=== PATIENT | female | born 1970 | race Caucasian/White ===

== ENCOUNTER → 2016-03-21 | Day surgery (SDC) | payer OTHER ==
[~2016-03-21] MED LIST: ASPI81TA2 PO; FENTANYL PF 100 MCG/2 ML VIAL. IV PRN; HYDROMORPHONE 2 MG/ML VIAL. IV PRN; IV RINGERS,LACTATED 1000ML 1,000 ML IV SCH; LIDOCAINE 1% 1 ML SYRINGE. ID PRN; LIDOCAINE 2% PF Vial for OR 5 ML VIAL. ONE; LORA10TA3 PO; MORPHINE SULFATE 2 MG/ML DISP.SYRIN. IV PRN; ONDANSETRON PF 4 MG/2 ML VIAL. IV PRN; PROCHLORPERAZINE 10 MG/2 ML VIAL. IV PRN; PROPOFOL 20 ML IV ONE
[2016-03-21 09:19] LABS: NEG OBC UR NEG; POS OBC UR POS
[2016-03-21 10:13] VITALS: BP 118/78
== END | disposition home or self-care (01) ==
LOC: SURG 08:47
PROVIDERS: ATTEND Internal Medicine Gastroenterology
DX: K64.0 First degree hemorrhoids (principal); J45.909 Unspecified asthma, uncomplicated; Z80.41 Family history of malignant neoplasm of ovary; Z72.89 Other problems related to lifestyle
CPT/HCPCS: 45378; 81025; J2704

== ENCOUNTER 2016-07-10 08:32 | Emergency (ER) | payer OTHER ==
[~2016-07-10] VITALS: Ht 170.2 cm; Wt 79.4 kg
[~2016-07-10 08:32] MED LIST changes: -FENTANYL PF 100 MCG/2 ML VIAL. IV PRN; -HYDROMORPHONE 2 MG/ML VIAL. IV PRN; -IV RINGERS,LACTATED 1000ML 1,000 ML IV SCH; -LIDOCAINE 1% 1 ML SYRINGE. ID PRN; -LIDOCAINE 2% PF Vial for OR 5 ML VIAL. ONE; -MORPHINE SULFATE 2 MG/ML DISP.SYRIN. IV PRN; -ONDANSETRON PF 4 MG/2 ML VIAL. IV PRN; -PROCHLORPERAZINE 10 MG/2 ML VIAL. IV PRN; -PROPOFOL 20 ML IV ONE
--- NOTE | 2016-07-10 08:59 | EKG ---
[facility] [address] [place] [address] Test Date: 2016-07-10 Test Time: 08:40:36 Pat Name: JESSICA FERNANDEZ Department: Room: Gender: F Chaperone: : 1970 Requested By: SADIE MCLAUGHLIN Order Number: [id number] Reading MD: Addison Alexander Measurements Intervals [place] Rate: 64 P: 30 ID: 160 QRS: 42 QRSD: 80 T: 22 QT: 382 QTc: 394 Interpretive Statements SINUS RHYTHM Electronically Signed On 07-13-2016 12:57:09 CDT by Addison Alexander
[2016-07-10] MEDS ORDERED: IV NORMAL SALINE 500ML BAG 500 ML IV ONE (09:00)
[2016-07-10] MEDS ORDERED: ONDANSETRON PF 4 MG/2 ML VIAL. IV ONE (09:00)
[2016-07-10] MEDS ORDERED: FAMOTIDINE 20 MG/2 ML VIAL IVP ONE (09:00)
--- NOTE | 2016-07-10 09:14 | PHYS DOC ---
Past Medical History Past Medical History: Asthma, Other Additional Past Medical Histor: Chronic sinus infections Past Surgical History: Tonsillectomy Additional Past Surgical Histo: laproscopy exploratory for endometriosis Alcohol Use: Rarely Drug Use: None Adult General Chief Complaint Chief Complaint: CHEST PAIN HPI HPI This is a 45-year-old female states she's had some mild intermittent chest discomfort today as well as some persistent nausea vomiting. She states this is all been noted today upon awakening. Patient was able to eat a full meal but states her symptoms did worsen after a meal. She does describe some left shoulder pain with her symptoms that has been there somewhat chronically. She denies any acute injury. She is a nonsmoker. She states her dad does have history of cardiac disease in his 60s. She states her mom has had history of TIAs in her early 40s. She herself denies any specific past medical history. She denies any drugs or alcohol use. Upon my initial assessment, patient does not appear to be in any distress. She is nontoxic and afebrile in appearance. She denies any chest pain or shortness breath at this time. Review of Systems Review of Systems Constitutional: Denies fever or chills [] Eyes: Denies change in visual acuity, redness, or eye pain [] HENT: Denies nasal congestion or sore throat [] Respiratory: Denies cough or shortness of breath [] Cardiovascular: No additional information not addressed in HPI [] GI: Denies abdominal pain, nausea, vomiting, bloody stools or diarrhea [] : Denies dysuria or hematuria [] Musculoskeletal: Denies back pain or joint pain [] Integument: Denies rash or skin lesions [] Neurologic: Denies headache, focal weakness or sensory changes [] Endocrine: Denies polyuria or polydipsia [] Current Medications Current Medications Current Medications Medications (Trade) Dose Ordered Sig/Arlene Start Time Stop Time Status Last Admin Dose Admin Famotidine (Pepcid) 20 mg 1X ONCE 07/10/16 09:00 07/10/16 09:01 DC 07/10/16 09:24 20 MG Ondansetron HCl (Zofran) 4 mg 1X ONCE 07/10/16 09:00 07/10/16 09:01 DC 07/10/16 09:24 4 MG Sodium Chloride 500 ml @ 500 mls/hr 1X ONCE 07/10/16 09:00 07/10/16 09:59 DC 07/10/16 09:25 500 MLS/HR Allergies Allergies Allergies Coded Allergies Type Severity Reaction Last Updated Verified No Known Drug Allergies 07/10/16 No Physical Exam Physical Exam Constitutional: Well developed, well nourished, no acute distress, non-toxic appearance. [] HENT: Normocephalic, atraumatic, bilateral external ears normal, oropharynx moist, no oral exudates, nose normal. [] Eyes: PERRLA, EOMI, conjunctiva normal, no discharge. [] Neck: Normal range of motion, no tenderness, supple, no stridor. [] Cardiovascular:Heart rate regular rhythm, no murmur [] Lungs & Thorax: Bilateral breath sounds clear to auscultation [] Abdomen: Bowel sounds normal, soft, no tenderness, no masses, no pulsatile masses. [] Skin: Warm, dry, no erythema, no rash. [] Back: No tenderness, no CVA tenderness. [] Extremities: No tenderness, no cyanosis, no clubbing, ROM intact, no edema. [] Neurologic: Alert and oriented X 3, normal motor function, normal sensory function, no focal deficits noted. [] Psychologic: Affect normal, judgement normal, mood normal. [] Current Patient Data Vital Signs Vital Signs Date Time Temp Pulse Resp B/P (MAP) Pulse Ox O2 Delivery O2 Flow Rate FiO2 07/10/16 10:38 52 16 113/70 (84) 100 Room Air 07/10/16 08:42 97.9 97.9 Lab Values Laboratory Tests Test 07/10/16 09:25 White Blood Count 6.9 x10^3/uL (4.0-11.0) Red Blood Count 4.47 x10^6/uL (3.50-5.40) Hemoglobin 13.4 g/dL (12.0-15.5) Hematocrit 38.7 % (36.0-47.0) Mean Corpuscular Volume 87 fL (79-100) Mean Corpuscular Hemoglobin 30 pg (25-35) Mean Corpuscular Hemoglobin Concent 35 g/dL (31-37) Red Cell Distribution Width 13.1 % (11.5-14.5) Platelet Count 250 x10^3/uL (140-400) Neutrophils (%) (Auto) 76 % (31-73) H Lymphocytes (%) (Auto) 16 % (24-48) L Monocytes (%) (Auto) 7 % (0-9) Eosinophils (%) (Auto) 1 % (0-3) Basophils (%) (Auto) 0 % (0-3) Neutrophils # (Auto) 5.2 x10^3uL (1.8-7.7) Lymphocytes # (Auto) 1.1 x10^3/uL (1.0-4.8) Monocytes # (Auto) 0.5 x10^3/uL (0.0-1.1) Eosinophils # (Auto) 0.1 x10^3/uL (0.0-0.7) Basophils # (Auto) 0.0 x10^3/uL (0.0-0.2) Sodium Level 142 mmol/L (136-145) Potassium Level 3.9 mmol/L (3.5-5.1) Chloride Level 105 mmol/L (98-107) Carbon Dioxide Level 26 mmol/L (21-32) Anion Gap 11 (6-14) Blood Urea Nitrogen 14 mg/dL (7-20) Creatinine 0.7 mg/dL (0.6-1.0) Estimated GFR (Cockcroft-Gault) 91.3 Glucose Level 104 mg/dL (70-99) H Calcium Level 9.6 mg/dL (8.5-10.1) Troponin I Quantitative < 0.017 ng/mL (0.000-0.055) Laboratory Tests 07/10/16 09:25 Laboratory Tests 07/10/16 09:25 EKG EKG EKG as interpreted by me shows a sinus rhythm with a rate of 64 bpm. There is no acute injury pattern seen. Intervals are normal. There are no signs of ectopy. Radiology/Procedures Radiology/Procedures Portable one view of the chest as interpreted by me did not reveal any acute cardiopulmonary process. Course & Med Decision Making Course & Med Decision Making Pertinent Labs and Imaging studies reviewed. (See chart for details) 44-year-old female who's having some mild nausea with no vomiting as well as some mild left shoulder and arm discomfort will have full laboratory workup including a set of cardiac enzymes. Her chest film and EKG at this time are unremarkable. I deemed her to be fairly low risk for cardiac related chest pain. A dose of Pepcid and Zofran will be given as her symptoms do seem to worsen after meals and could be related to indigestion. There are very atypical for cardiac disease. If her cardiac enzymes are negative, she will be safe to be discharged with close follow up. Her LIZ score is zero. On my reassessment, the patient is still somewhat symptomatic after Pepcid and Zofran. I ambulated with the patient without difficulty. I discussed that she is low risk for cardiac related chest pain and that she is to follow closely with her primary care doctor. She states she will follow up with Dr. Anguiano in the next several days which I think is appropriate for possible stress test. I also wrote her for a work note today. I also instructed her that if her pain symptoms should worsen in any way over the next 24 hours to return immediately to the ER. She is very agreeable with this plan and will be discharged without incident. Dragon Disclaimer Dragon Disclaimer This electronic medical record was generated, in whole or in part, using a voice recognition dictation system. Departure Departure Impression: Primary Impression: Chest pain Disposition: 01 HOME, SELF-CARE Admitting Physician: Other Condition: STABLE Referrals: MARLIN ANGUIANO MD Patient Instructions: Chest Pain (Nonspecific), [id number] Additional Instructions: Please follow up closely with Dr. Anguiano for your chest symptoms in the next 2-3 days. Return to the ER if your symptoms should worsen anyway in the next 24 hours such as worsening chest pain or shortness of breath. Scripts Ondansetron Hcl (ZOFRAN) 4 Mg Tablet 4 MG PO BID Y for NAUSEA/VOMITING, #10 TAB Prov: SADIE MCLAUGHLIN DO 07/10/16 SADIE MCLAUGHLIN DO Jul 10, 2016 09:14
--- NOTE | 2016-07-10 09:21 | RAD ---
Indication chest tightness.. Vomiting. A single view of the chest was obtained. No prior imaging is available. The heart, pulmonary vessels and mediastinum appear normal. The lungs are clear. There is no pleural fluid or pneumothorax. The visualized bony structures appear grossly intact. IMPRESSION: No acute or focal process is seen in the chest
[2016-07-10 09:36] LABS: BASO % 0 % (0-3); EOS % 1 % (0-3); HEMATOCRIT 38.7 % (36.0-47.0); HEMOGLOBIN 13.4 g/dL (12.0-15.5); LYMPH # 1.1 x10^3/uL (1.0-4.8); LYMPH % 16 % (24-48); MEAN CORPUSCULAR HEMOGLOBIN 30 pg (25-35); MEAN CORPUSCULAR HGB CONC 35 g/dL (31-37); MEAN CORPUSCULAR VOLUME 87 fL (79-100); MONO % 7 % (0-9); NEUT % 76 % (31-73); PLATELET COUNT 250 x10^3/uL (140-400); RED BLOOD COUNT 4.47 x10^6/uL (3.50-5.40); RED CELL DISTRIBUTION WIDTH 13.1 % (11.5-14.5); WHITE BLOOD COUNT 6.9 x10^3/uL (4.0-11.0)
[2016-07-10 09:50] LABS: CALCIUM 9.6 mg/dL (8.5-10.1); CREATININE 0.7 mg/dL (0.6-1.0); GFR 91.3; POTASSIUM 3.9 mmol/L (3.5-5.1)
[2016-07-10 10:38] VITALS: BP 113/70
[2016-07-10] MEDS ORDERED: ONDA4TAB7 PO (11:09)
== END 2016-07-10 11:27 | disposition home or self-care (01) ==
LOC: ER 08:32
DX: R07.89 Other chest pain (principal); R11.2 Nausea with vomiting, unspecified; M25.512 Pain in left shoulder; J45.909 Unspecified asthma, uncomplicated
CPT/HCPCS: 36415; 71010; 80048; 84484; 85027; 93005; 96361; 96374; 96375; 99285; J2405; J7040; S0028

== ENCOUNTER → 2017-01-20 | Outpatient (CLI) | payer OTHER ==
[~2017-01-20] MED LIST changes: +ASPI-630 PO; -ASPI81TA2 PO; +ONDA4TAB7 PO
--- NOTE | 2017-01-20 17:26 | KCIC ---
Bilateral digital screening mammograms: Reason for examination: Routine baseline screening. Interpretation was made with the benefit of CAD. The skin and nipples show no abnormalities. No abnormal axillary lymph nodes are seen. The breast parenchyma is heterogeneously dense. (Breast density: Category C.) There are no dominant masses, suspicious calcifications or architectural distortion. Impression: No evidence of malignancy. Recommend routine screening. Your patient's mammogram demonstrates that she has dense breast tissue (breast density category C or D), which could hide abnormalities, and if she has other risk factors for breast cancer that have been identified, she might benefit from supplemental screening tests that may be suggested by you as her ordering physician. Dense breast tissue, in and of itself, is a relatively common condition. Therefore, this information is not provided to cause undue concern, but rather to raise your awareness and to promote discussion with your patient regarding the presence of other risk factors, in addition to dense breast tissue. Your patient's mammography results will be sent to her. BI-RAD Category 1: Negative. "Our facility is accredited by the [employer] Mammography Program." This patient's information has been entered into a reminder system for the patient to be notified with the results of her examination and a target date for the next mammogram. Electronically signed by: Cathryn Ocampo MD (01/20/2017 5:22 PM) [facility]
== END | disposition home or self-care (01) ==
LOC: KCIC MAMMO 10:27
PROVIDERS: ATTEND Physician Assistant Medical
DX: Z12.31 Encounter for screening mammogram for malignant neoplasm of breast (principal)
CPT/HCPCS: G0202; 77067

== ENCOUNTER → 2017-05-28 | Outpatient (CLI) | payer OTHER | END | disposition home or self-care (01) | LOC: KCIC CT 12:51 | DX: Z13.6 Encounter for screening for cardiovascular disorders (principal); R91.1 Solitary pulmonary nodule; Z82.49 Family history of ischemic heart disease and other diseases of the circulatory system | CPT/HCPCS: 75571 ==

== ENCOUNTER → 2017-06-29 | Outpatient (CLI) | payer OTHER | END | disposition home or self-care (01) | LOC: ECHO 10:02 | DX: I36.1 Nonrheumatic tricuspid (valve) insufficiency (principal) | CPT/HCPCS: 93306 ==

== ENCOUNTER → 2018-03-25 | Outpatient (CLI) | payer OTHER ==
--- NOTE | 2018-03-25 09:36 | KCIC ---
EXAM: Cervical spine MRI without contrast. HISTORY: Right upper extremity radiculopathy. TECHNIQUE: Multiplanar, multisequence magnetic resonance imaging of the cervical spine was performed without contrast. COMPARISON: Radiographs dated 03/18/2018. FINDINGS: There is a chronic mild anterior superior endplate depression with Schmorl's node at T2. There is degenerative endplate remodeling with Schmorl's node formation at C6-C7. There is no suspicious osseous lesion. There is no acute or subacute fracture. No spinal cord lesion is seen. The posterior fossa and skull base are unremarkable. At C2-C3, there is no stenosis. At C3-C4, there is mild left greater than right facet arthropathy. There is no stenosis. At C4-C5, there is a shallow right posterior lateral disc protrusion. There is mild left facet arthropathy. There is mild right foraminal stenosis. At C5-C6, there is a left posterior lateral disc osteophyte complex imposed on endplate remodeling. There is mild bilateral facet arthropathy. There is a tiny dilated nerve root sheath cyst within the right neural foramen. There is mild left foraminal stenosis. At C6-C7, there is a disc bulge and endplate osteophytosis. There is minimal left greater than right facet arthropathy. There is uncovertebral arthropathy. There is a tiny dilated nerve root sheath cyst within the left neural foramen. There is minimal left foraminal stenosis. There is a suspected 7 mm cyst within the right C7 lamina. IMPRESSION: 1. Multilevel degenerative changes involving the cervical spine, described in detail above. This results in slight foraminal stenosis at the aforementioned levels. 2. No acute finding. Electronically signed by: Belgica Guzman MD (03/25/2018 9:33 AM) [facility]
== END | disposition home or self-care (01) ==
LOC: KCIC MRI 08:31
DX: M47.22 Other spondylosis with radiculopathy, cervical region (principal); M50.121 Cervical disc disorder at C4-C5 level with radiculopathy; M25.78 Osteophyte, vertebrae; M48.02 Spinal stenosis, cervical region
CPT/HCPCS: 72141

== ENCOUNTER → 2018-11-05 | Outpatient (CLI) | payer OTHER ==
[2018-11-05 12:40] LABS: BASO % 1 % (0-3); EOS # 0.1 x10^3/uL (0.0-0.7); EOS % 2 % (0-3); HEMATOCRIT 40.1 % (36.0-47.0); HEMOGLOBIN 13.6 g/dL (12.0-15.5); LYMPH # 1.6 x10^3/uL (1.0-4.8); LYMPH % 33 % (24-48); MEAN CORPUSCULAR HEMOGLOBIN 30 pg (25-35); MEAN CORPUSCULAR HGB CONC 34 g/dL (31-37); MEAN CORPUSCULAR VOLUME 88 fL (79-100); MONO # 0.4 x10^3/uL (0.0-1.1); MONO % 9 % (0-9); NEUT # 2.7 x10^3/uL (1.8-7.7); NEUT % 55 % (31-73); PLATELET COUNT 256 x10^3/uL (140-400); RED BLOOD COUNT 4.57 x10^6/uL (3.50-5.40); RED CELL DISTRIBUTION WIDTH 13.1 % (11.5-14.5); WHITE BLOOD COUNT 4.9 x10^3/uL (4.0-11.0)
[2018-11-05 21:08] LABS: RHEUMATOID FACTOR <10.0 IU/mL (0.0-13.9)
[2018-11-09 11:14] LABS: ANA INTERP Negative (.)
== END | disposition home or self-care (01) ==
LOC: LAB 12:24
PROVIDERS: ATTEND Physical Medicine & Rehabilitation
DX: M79.18 Myalgia, other site (principal)
CPT/HCPCS: 36415; 85025; 85651; 86038; 86431

== ENCOUNTER 2018-11-15 11:11 | Emergency (ER) | payer OTHER ==
[~2018-11-15] VITALS: Ht 170.2 cm; Wt 82.6 kg
--- NOTE | 2018-11-15 12:01 | RAD ---
EXAM: CT HEAD WITHOUT CONTRAST. HISTORY: Headache. TECHNIQUE: Computed tomography of the head was performed without intravenous contrast. COMPARISON: None. FINDINGS: There is no intracranial hemorrhage. Vila-white differentiation is preserved. The ventricles are normal in size and position. The visualized paranasal sinuses appear clear. The orbits are unremarkable. The temporal bones are unremarkable. The calvarium reveals no suspicious lesions. IMPRESSION: 1. No acute intracranial findings. *One or more of the following individualized dose reduction techniques were utilized for this examination: 1. Automated exposure control. 2. Adjustment of the mA and/or kV according to patient size. 3. Use of iterative reconstruction technique. Electronically signed by: Neelima Lal MD (11/15/2018 11:59 AM) [facility]
--- NOTE | 2018-11-15 12:16 | RAD ---
Chest radiograph 11/15/2018 11:34 AM INDICATION: Chest pain, headache COMPARISON: 07/10/2016 TECHNIQUE: Frontal and lateral views of the chest are provided. FINDINGS: The cardiomediastinal silhouette is within normal limits. There are no pleural effusions. There is no pulmonary vascular congestion. There is no pneumothorax. The lungs are clear. No significant osseous abnormality is identified. IMPRESSION: No acute cardiopulmonary process. Electronically signed by: Carey Genao MD (11/15/2018 12:13 PM) [facility]
[2018-11-15 12:33] LABS: BASO % 1 % (0-3); EOS # 0.2 x10^3/uL (0.0-0.7); EOS % 4 % (0-3); HEMATOCRIT 37.2 % (36.0-47.0); HEMOGLOBIN 12.7 g/dL (12.0-15.5); LYMPH # 1.5 x10^3/uL (1.0-4.8); LYMPH % 34 % (24-48); MEAN CORPUSCULAR HEMOGLOBIN 30 pg (25-35); MEAN CORPUSCULAR HGB CONC 34 g/dL (31-37); MEAN CORPUSCULAR VOLUME 88 fL (79-100); MONO # 0.3 x10^3/uL (0.0-1.1); MONO % 8 % (0-9); NEUT # 2.4 x10^3/uL (1.8-7.7); NEUT % 54 % (31-73); PLATELET COUNT 272 x10^3/uL (140-400); RED BLOOD COUNT 4.21 x10^6/uL (3.50-5.40); RED CELL DISTRIBUTION WIDTH 13.1 % (11.5-14.5); WHITE BLOOD COUNT 4.4 x10^3/uL (4.0-11.0)
[2018-11-15 12:39] LABS: CALCIUM 9.9 mg/dL (8.5-10.1); CREATININE 0.7 mg/dL (0.6-1.0); GFR 90.5
[2018-11-15 12:45] LABS: ALBUMIN 3.9 g/dL (3.4-5.0); ALBUMIN/GLOBULIN RATIO 1.1 (1.0-1.7); MAGNESIUM 1.8 mg/dL (1.8-2.4); TOTAL BILIRUBIN 0.5 mg/dL (0.2-1.0); TOTAL PROTEIN 7.3 g/dL (6.4-8.2)
--- NOTE | 2018-11-15 13:15 | PHYS DOC ---
Past Medical History Past Medical History: Asthma, Other Additional Past Medical Histor: Chronic sinus infections Past Surgical History: Tonsillectomy Additional Past Surgical Histo: laproscopy exploratory for endometriosis Alcohol Use: Rarely Drug Use: None Adult General Chief Complaint Chief Complaint: HYPERTENSION HPI HPI Patient is a 47 year old female who presents with complaining of hypertension. 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 She complaining of a few episodes of intermittent substernal pressure chest pain yesterday that last for a few minutes and resolved spontaneously. Patient complaining of not feeling good without neuro deficit, fever and chills, vomiting, urinary symptom, . Review of Systems Review of Systems Constitutional: Denies fever or chills [] Eyes: Denies change in visual acuity, redness, or eye pain [] HENT: Denies nasal congestion or sore throat [] Respiratory: Denies cough or shortness of breath [] Cardiovascular: No additional information not addressed in HPI [] GI: Denies abdominal pain, nausea, vomiting, bloody stools or diarrhea [] : Denies dysuria or hematuria [] Musculoskeletal: Denies back pain or joint pain [] Integument: Denies rash or skin lesions [] Neurologic: Reports headache, denies focal weakness or sensory changes [] Endocrine: Denies polyuria or polydipsia [] All other systems were reviewed and found to be within normal limits, except as documented in this note. Allergies Allergies Allergies Coded Allergies Type Severity Reaction Last Updated Verified No Known Drug Allergies 07/10/16 No Physical Exam Physical Exam Constitutional: Well developed, well nourished, mild distress, non-toxic appearance. [] HENT: Normocephalic, atraumatic. Eyes: PERRLA, EOMI, conjunctiva normal, no discharge. [] Neck: Normal range of motion, no tenderness, supple, no stridor. [] Cardiovascular:Heart rate regular rhythm, no murmur [] Lungs & Thorax: Bilateral breath sounds clear to auscultation [] Abdomen: Bowel sounds normal, soft, no tenderness, no masses, no pulsatile masses. [] Skin: Warm, dry, no erythema, no rash. [] Back: No tenderness, no CVA tenderness. [] Extremities: No tenderness, no cyanosis, no clubbing, ROM intact, no edema. [] Neurologic: Alert and oriented X 3, no focal deficits noted. [] Psychologic: Affect normal, judgement normal, mood normal. [] Current Patient Data Vital Signs Vital Signs Date Time Temp Pulse Resp B/P (MAP) Pulse Ox O2 Delivery O2 Flow Rate FiO2 11/15/18 11:21 98.2 74 16 182/115 (137) 95 Room Air 98.2 Lab Values Laboratory Tests Test 11/15/18 12:20 White Blood Count 4.4 x10^3/uL (4.0-11.0) Red Blood Count 4.21 x10^6/uL (3.50-5.40) Hemoglobin 12.7 g/dL (12.0-15.5) Hematocrit 37.2 % (36.0-47.0) Mean Corpuscular Volume 88 fL (79-100) Mean Corpuscular Hemoglobin 30 pg (25-35) Mean Corpuscular Hemoglobin Concent 34 g/dL (31-37) Red Cell Distribution Width 13.1 % (11.5-14.5) Platelet Count 272 x10^3/uL (140-400) Neutrophils (%) (Auto) 54 % (31-73) Lymphocytes (%) (Auto) 34 % (24-48) Monocytes (%) (Auto) 8 % (0-9) Eosinophils (%) (Auto) 4 % (0-3) H Basophils (%) (Auto) 1 % (0-3) Neutrophils # (Auto) 2.4 x10^3/uL (1.8-7.7) Lymphocytes # (Auto) 1.5 x10^3/uL (1.0-4.8) Monocytes # (Auto) 0.3 x10^3/uL (0.0-1.1) Eosinophils # (Auto) 0.2 x10^3/uL (0.0-0.7) Basophils # (Auto) 0.0 x10^3/uL (0.0-0.2) Sodium Level 142 mmol/L (136-145) Potassium Level 4.0 mmol/L (3.5-5.1) Chloride Level 105 mmol/L (98-107) Carbon Dioxide Level 27 mmol/L (21-32) Anion Gap 10 (6-14) Blood Urea Nitrogen 10 mg/dL (7-20) Creatinine 0.7 mg/dL (0.6-1.0) Estimated GFR (Cockcroft-Gault) 90.5 BUN/Creatinine Ratio 14 (6-20) Glucose Level 83 mg/dL (70-99) Calcium Level 9.9 mg/dL (8.5-10.1) Magnesium Level 1.8 mg/dL (1.8-2.4) Total Bilirubin 0.5 mg/dL (0.2-1.0) Aspartate Amino Transferase (AST) 17 U/L (15-37) Alanine Aminotransferase (ALT) 20 U/L (14-59) Alkaline Phosphatase 65 U/L (46-116) Creatine Kinase 71 U/L (26-192) Troponin I Quantitative < 0.017 ng/mL (0.000-0.055) Total Protein 7.3 g/dL (6.4-8.2) Albumin 3.9 g/dL (3.4-5.0) Albumin/Globulin Ratio 1.1 (1.0-1.7) Lipase 46 U/L (73-393) L Laboratory Tests 11/15/18 12:20 Laboratory Tests 11/15/18 12:20 EKG EKG EKG interpreted by me. EKG at 1140 showed normal sinus rhythm at rate of 69, normal MN and QT intervals, no acute ST and T-wave abnormalities. Radiology/Procedures Radiology/Procedures [][facility] [address] [place], [place] [id number] IMAGING REPORT Signed PATIENT: JESSICA FERNANDEZ ACCOUNT: [id number] : 1970 LOCATION: ER AGE: 47 SEX: F EXAM STATUS: REG ER ORD. PHYSICIAN: ERIKA MCGINNIS MD REASON: chest pain, HEADACHE PROCEDURE: CHEST PA & LATERAL Chest radiograph 11/15/2018 11:34 AM INDICATION: Chest pain, headache COMPARISON: 07/10/2016 TECHNIQUE: Frontal and lateral views of the chest are provided. FINDINGS: The cardiomediastinal silhouette is within normal limits. There are no pleural effusions. There is no pulmonary vascular congestion. There is no pneumothorax. The lungs are clear. No significant osseous abnormality is identified. IMPRESSION: No acute cardiopulmonary process. Electronically signed by: Sepideh Garland MD (11/15/2018 12:13 PM) [facility] DICTATED and SIGNED BY: SEPIDEH GARLAND MD DATE: 11/15/18 1213 [facility] [address] [place] [address] IMAGING REPORT Signed PATIENT: JESSICA FERNANDEZ ACCOUNT: [id number] : 1970 LOCATION: ER AGE: 47 SEX: F EXAM STATUS: REG ER ORD. PHYSICIAN: ERIKA MCGINNIS MD REASON: headache PROCEDURE: CT HEAD WO CONTRAST EXAM: CT HEAD WITHOUT CONTRAST. HISTORY: Headache. TECHNIQUE: Computed tomography of the head was performed without intravenous contrast. COMPARISON: None. FINDINGS: There is no intracranial hemorrhage. Vila-white differentiation is preserved. The ventricles are normal in size and position. The visualized paranasal sinuses appear clear. The orbits are unremarkable. The temporal bones are unremarkable. The calvarium reveals no suspicious lesions. IMPRESSION: 1. No acute intracranial findings. *One or more of the following individualized dose reduction techniques were utilized for this examination: 1. Automated exposure control. 2. Adjustment of the mA and/or kV according to patient size. 3. Use of iterative reconstruction technique. Electronically signed by: Neelima Lal MD (11/15/2018 11:59 AM) [facility] [place] DICTATED and SIGNED BY: GUIDO LAL MD DATE: 11/15/18 1159 Course & Med Decision Making Course & Med Decision Making Pertinent Labs and Imaging studies reviewed. (See chart for details) Evaluation of patient in ER showed 47-year-old patient with elevation of blood pressure without history of hypertension. Patient had unremarkable physical exam, EKG, CT of head and chest x-ray. Blood pressure was 180s over 115 at arrival to ER that gradually decreased to 150s over 90s. She was advised to record her blood pressure follow-up with her primary care physician. Dragon Disclaimer Dragon Disclaimer This electronic medical record was generated, in whole or in part, using a voice recognition dictation system. Departure Departure Impression: Primary Impression: Elevated blood pressure reading without diagnosis of hypertension Disposition: HOME, SELF-CARE (at 1315) Condition: IMPROVED Referrals: ROLDAN PRUETT (PCP) Patient Instructions: Form - Blood Pressure Record Sheet, Managing Your High Blood Pressure Additional Instructions: Follow-up with your primary care physician in 3-5 days Return to ER if not getting better ERIKA MCGINNIS MD Nov 15, 2018 13:15
[2018-11-15 13:45] VITALS: BP 150/96
--- NOTE | 2018-11-15 15:54 | EKG ---
[facility] [address] [place] [address] Test Date: 2018-11-15 Test Time: 11:40:00 Pat Name: JESSICA FERNANDEZ Department: Room: Gender: F Senior Storage Administrator: : 1970 Requested By: ERIKA MCGINNIS Order Number: [id number] Reading MD: Measurements Intervals [place] Rate: 69 P: 50 OK: 166 QRS: 19 QRSD: 80 T: 14 QT: 384 QTc: 413 Interpretive Statements SINUS RHYTHM QRS(T) CONTOUR ABNORMALITY CONSIDER ANTEROSEPTAL MYOCARDIAL DAMAGE POSSIBLY ABNORMAL ECG RI6.01 No previous ECG available for comparison
== END 2018-11-15 14:27 | disposition home or self-care (01) ==
LOC: ER 11:11
DX: R03.0 Elevated blood-pressure reading, without diagnosis of hypertension (principal); R51 Headache; R20.0 Anesthesia of skin; J45.909 Unspecified asthma, uncomplicated; Z90.89 Acquired absence of other organs
CPT/HCPCS: 36415; 70450; 71046; 80053; 82550; 83690; 83735; 83880; 84484; 85025; 93005; 99285-25

== ENCOUNTER → 2019-02-07 | Outpatient (CLI) | payer OTHER ==
--- NOTE | 2019-02-08 09:07 | RAD ---
Examination: CT CHEST WO CONTRAST History: Lung nodule Comparison/Correlation: 11/15/2018 two-view chest x-ray exam Findings: Axial images of the chest were obtained without contrast. Sagittal images were provided. Lung byrnes are clear. No pulmonary nodule or mass. No enlarged thoracic lymph nodes. No pleural or pericardial effusion. Tracheal bronchial tree is unremarkable. Bony structures are unremarkable. Partially visualized upper abdomen is unremarkable. Impression: No suspicious infiltrate. No pulmonary nodule or mass. PQRS Compliance Statement: One or more of the following individualized dose reduction techniques were utilized for this examination: 1. Automated exposure control 2. Adjustment of the mA and/or kV according to patient size 3. Use of iterative reconstruction technique Electronically signed by: Tien Bonner MD (02/08/2019 9:04 AM) [facility]
== END | disposition home or self-care (01) ==
LOC: CT 17:09
PROVIDERS: ATTEND Physician Assistant Medical
DX: R91.1 Solitary pulmonary nodule (principal)
CPT/HCPCS: 71250

== ENCOUNTER → 2019-03-17 | Outpatient (CLI) | payer OTHER ==
--- NOTE | 2019-03-17 18:18 | RAD ---
EXAM: Pelvic Ultrasound Complete INDICATION: Heavy vaginal bleeding during cycles and left pelvic pain ? TECHNIQUE: Real-time ultrasound of the pelvis with permanent freeze-frame documentation. COMPARISON:?None. ? FINDINGS: ? UTERUS:?Uterus 13.0 x 4.1 x 6.6 cm.? Endometrial thickness 2.3 cm. No uterine or endometrial abnormality. ? RIGHT OVARY/ADNEXA: Right ovary measures 3.7 x 2.0 x 3.4 cm.? And contains a 2.2 x 1.6 x 2.3 cm cyst with internal debris and peripheral vascularity, suggestive of an organizing hemorrhagic cyst. Normal ovarian blood flow. LEFT OVARY/ADNEXA:?Left ovary measures 2.9 x 2.0 x 2.6 cm. ?Unremarkable. Normal ovarian blood flow. ? OTHER:?Some varices in the left adnexa are also noted. ? IMPRESSION: ? 1. Hemorrhagic cyst in the right ovary, and left pelvic varices compatible with pelvic congestion syndrome in the appropriate clinical context. 2. There is thickening of the endometrial stripe to 2.2 cm. Correlate with the phase of menstrual cycle. Electronically signed by: Benny Butt MD (03/17/2019 6:16 PM) [facility]
--- NOTE | 2019-03-19 09:14 | RAD ---
History: Routine screening. Technique: Bilateral digital mammographic routine views were obtained with 2-D and 3-D technique, including CAD - computer aided detection. Comparison: 01/20/2017. Findings: Breast Tissue Density C : The breast tissue is heterogeneously dense. Scattered fibroglandular elements may obscure underlying pathology. There are no suspicious masses, microcalcifications or areas of architectural distortion. Impression: No suspicious findings. BI-RADS Category 1: Negative. Normal interval followup. Your mammogram demonstrates that you have dense breast tissue, which could hide abnormalities, and if you have other risk factors for breast cancer that have been identified, you might benefit from supplemental screening tests that may be suggested by your ordering physician. Dense breast tissue, in and of itself, is a relatively common condition. This information is not provided to cause undue concern, but rather to raise your awareness and to promote discussion with your physician regarding the presence of other risk factors, in addition to dense breast tissue. A report of your mammography results will be sent to you and your physician. You should contact your physician if you have any questions or concerns regarding this report. A mammogram does not have 100% sensitivity and therefore a negative imaging study should not delay further work up of a suspicious abnormality. The patient will receive a letter with the results in the mail. Patient information is entered into the reminder system with a target due date for the next screening mammogram. The patient will receive a reminder. "Our facility is accredited by the [employer] Mammography Program." BI-RADS 1 -- negative findings (within normal)
== END | disposition home or self-care (01) ==
LOC: US 14:19
PROVIDERS: ATTEND Physician Assistant Medical
DX: Z12.31 Encounter for screening mammogram for malignant neoplasm of breast (principal); N93.9 Abnormal uterine and vaginal bleeding, unspecified; I86.2 Pelvic varices; N83.291 Other ovarian cyst, right side
CPT/HCPCS: 76830; 76856; 77063; 77067

== ENCOUNTER → 2019-04-29 | Day surgery (SDC) | payer OTHER ==
[~2019-04-29] MED LIST changes: +CYCL10TA2 PO; +IV RINGERS,LACTATED 1000ML 1,000 ML IV SCH; +LIDOCAINE 2% PF 5 ML VIAL. ONE; +PROPOFOL 40 ML IV ONE; +TRAM50TA PO
[2019-04-29 09:33] VITALS: BP 132/76
== END ==
LOC: ENDOS 07:57
PROVIDERS: ATTEND Internal Medicine Gastroenterology
DX: R19.4 Change in bowel habit (principal); K64.0 First degree hemorrhoids; K63.89 Other specified diseases of intestine; F15.90 Other stimulant use, unspecified, uncomplicated; J45.909 Unspecified asthma, uncomplicated; Z72.89 Other problems related to lifestyle; Z98.890 Other specified postprocedural states
CPT/HCPCS: 45380; 81025; 88305; J2001; J2704; J3490

== ENCOUNTER → 2019-05-26 | Outpatient (CLI) | payer OTHER ==
[2019-04-29 09:33] VITALS: BP 132/76
[~2019-05-26] MED LIST changes: -IV RINGERS,LACTATED 1000ML 1,000 ML IV SCH; -LIDOCAINE 2% PF 5 ML VIAL. ONE; -PROPOFOL 40 ML IV ONE
== END | disposition home or self-care (01) ==
LOC: LAB 12:50
PROVIDERS: ATTEND Internal Medicine Pulmonary Disease
DX: R06.02 Shortness of breath (principal); Z20.828 Contact with and (suspected) exposure to other viral communicable diseases
CPT/HCPCS: 36415; 87635

== ENCOUNTER → 2020-11-01 | Outpatient (CLI) | payer OTHER, BC ==
[2019-04-29 09:33] VITALS: BP 132/76
[2020-11-01 16:01] LABS: BASO # 0.1 x10^3/uL (0.0-0.2); BASO % 1 % (0-3); EOS # 0.1 x10^3/uL (0.0-0.7); EOS % 2 % (0-3); HEMATOCRIT 42.2 % (36.0-47.0); HEMOGLOBIN 14.1 g/dL (12.0-15.5); LYMPH # 1.9 x10^3/uL (1.0-4.8); LYMPH % 30 % (24-48); MEAN CORPUSCULAR HEMOGLOBIN 30 pg (25-35); MEAN CORPUSCULAR HGB CONC 34 g/dL (31-37); MEAN CORPUSCULAR VOLUME 90 fL (79-100); MONO # 0.4 x10^3/uL (0.0-1.1); MONO % 6 % (0-9); NEUT # 3.9 x10^3/uL (1.8-7.7); NEUT % 61 % (31-73); PLATELET COUNT 335 x10^3/uL (140-400); RED BLOOD COUNT 4.69 x10^6/uL (3.50-5.40); RED CELL DISTRIBUTION WIDTH 13.3 % (11.5-14.5); WHITE BLOOD COUNT 6.3 x10^3/uL (4.0-11.0)
[2020-11-01 16:21] LABS: ALBUMIN 3.9 g/dL (3.4-5.0); ALBUMIN/GLOBULIN RATIO 0.9 (1.0-1.7); C-REACTIVE PROTEIN 3.6 mg/L (0-3.3); CALCIUM 10.3 mg/dL (8.5-10.1); CREATININE 0.6 mg/dL (0.6-1.0); GFR 107.2; POTASSIUM 3.5 mmol/L (3.5-5.1); TOTAL BILIRUBIN 0.6 mg/dL (0.2-1.0); TOTAL PROTEIN 8.3 g/dL (6.4-8.2)
--- NOTE | 2020-11-01 17:29 | RAD ---
XR HAND 3 VIEWS 11/01/2020 4:06 PM INDICATION: Polyarthralgia COMPARISON: None available. TECHNIQUE: 3 views of the right and 3 views left hand are provided. FINDINGS/ IMPRESSION: There is no acute fracture or dislocation. Joint spaces are maintained. Bone mineralization is within normal limits. Regional soft tissues are within normal limits. There is no soft tissue gas or osseou s erosion. No radiopaque foreign body. Electronically signed by: Carey Genao MD (11/01/2020 5:27 PM) [id number]
[2020-11-02 11:12] LABS: RHEUMATOID FACTOR <10.0 IU/mL (0.0-13.9)
[2020-11-04 20:07] LABS: CYCLIC CITRULLIN PEP AB 30 units (0-19)
[2020-11-05 20:08] LABS: ANA INTERP Negative (.)
== END ==
LOC: RAD 15:26
PROVIDERS: ATTEND Internal Medicine Rheumatology
DX: M25.541 Pain in joints of right hand (principal); M25.542 Pain in joints of left hand
CPT/HCPCS: 36415; 80053; 85025; 85651; 86038; 86140; 86200; 86431; 86812; 73130-50

== ENCOUNTER 2021-07-03 07:24 | Observation (INO) | payer BC, OTHER ==
[~2021-07-03] VITALS: Ht 170.2 cm; Wt 90.7 kg
[~2021-07-03 07:24] MED LIST changes: +CYCL10TA19 PO; -CYCL10TA2 PO
[2021-07-03] MEDS ORDERED: ASPIRIN CHEWABLE 81 MG TABLET. PO ONE (07:45)
--- NOTE | 2021-07-03 07:46 | ED.ADGEN ---
Past Medical History Past Medical History: Asthma, Other Additional Past Medical Histor: Chronic sinus infections Past Surgical History: Tonsillectomy Additional Past Surgical Histo: laproscopy exploratory for endometriosis Smoking Status: Never Smoker Alcohol Use: Rarely Drug Use: None General Adult EDM: Chief Complaint: CHEST PAIN HPI: HPI: Patient is a 50-year-old female who arrives ambulatory to the emergency department complaining of the acute onset of chest tightness with radiation into her left upper extremity to her left hand. Patient reports she was driving to work when she began feeling this tightness with migration into her left shoulder and left upper extremity. Patient reports yesterday evening she had some fatigue however she is not that with chest pain. Patient states now her pain is resolved however she is having difficulty catching her breath. Despite this, the patient's vital signs are well within normal limits as the patient has oxygen saturations at 99% on room air. She denies any known cardiac history. She further denies any diaphoresis, nausea or vomiting. She is awake, alert and nontoxic-appearing Review of Systems: Review of Systems: Constitutional: Denies fever or chills. [] Eyes: Denies change in visual acuity. [] HENT: Denies nasal congestion or sore throat. [] Respiratory: Denies cough or shortness of breath. [] Cardiovascular: Denies chest pain or edema. [] GI: Denies abdominal pain, nausea, vomiting, bloody stools or diarrhea. [] : Denies dysuria. [] Musculoskeletal: Denies back pain or joint pain. [] Integument: Denies rash. [] Neurologic: Denies headache, focal weakness or sensory changes. [] Endocrine: Denies polyuria or polydipsia. [] Lymphatic: Denies swollen glands. [] Psychiatric: Denies depression or anxiety. [] Current Medications: Current Medications Medications (Trade) Dose Ordered Sig/Arlene Start Time Stop Time Status Last Admin Dose Admin Acetaminophen (Tylenol) 650 mg PRN Q4HRS PRN 07/03/21 08:30 07/04/21 08:29 Aspirin (Aspirin Chewable) 324 mg 1X ONCE 07/03/21 07:45 07/03/21 07:46 DC 07/03/21 08:25 324 MG Morphine Sulfate (Morphine Sulfate) 4 mg PRN Q2HR PRN 07/03/21 08:30 07/04/21 08:29 Ondansetron HCl (Zofran) 4 mg PRN Q8HRS PRN 07/03/21 08:30 07/04/21 08:29 Allergies: Allergies: Allergies Coded Allergies Type Severity Reaction Last Updated Verified No Known Drug Allergies 04/29/19 No Physical Exam: PE: Constitutional: Well developed, well nourished, no acute distress, non-toxic appearance. [] HENT: Normocephalic, atraumatic, bilateral external ears normal, oropharynx moist, no oral exudates, nose normal. [] Eyes: PERRLA, EOMI, conjunctiva normal, no discharge. [] Neck: Normal range of motion, no tenderness, supple, no stridor. [] Cardiovascular:Heart rate regular rhythm, no murmur [] Lungs & Thorax: Bilateral breath sounds clear to auscultation [] Abdomen: Bowel sounds normal, soft, no tenderness, no masses, no pulsatile masses. [] Skin: Warm, dry, no erythema, no rash. [] Back: No tenderness, no CVA tenderness. [] Extremities: No tenderness, no cyanosis, no clubbing, ROM intact, no edema. [] Neurologic: Alert and oriented X 3, normal motor function, normal sensory function, no focal deficits noted. [] Psychologic: Affect normal, judgement normal, mood normal. [] Current Patient Data: Labs: Laboratory Tests Test 07/03/21 07:50 White Blood Count 4.1 x10^3/uL (4.0-11.0) Red Blood Count 4.20 x10^6/uL (3.50-5.40) Hemoglobin 12.7 g/dL (12.0-15.5) Hematocrit 36.9 % (36.0-47.0) Mean Corpuscular Volume 88 fL (79-100) Mean Corpuscular Hemoglobin 30 pg (25-35) Mean Corpuscular Hemoglobin Concent 34 g/dL (31-37) Red Cell Distribution Width 13.2 % (11.5-14.5) Platelet Count 252 x10^3/uL (140-400) Neutrophils (%) (Auto) 60 % (31-73) Lymphocytes (%) (Auto) 26 % (24-48) Monocytes (%) (Auto) 9 % (0-9) Eosinophils (%) (Auto) 4 % (0-3) H Basophils (%) (Auto) 1 % (0-3) Neutrophils # (Auto) 2.5 x10^3/uL (1.8-7.7) Lymphocytes # (Auto) 1.1 x10^3/uL (1.0-4.8) Monocytes # (Auto) 0.4 x10^3/uL (0.0-1.1) Eosinophils # (Auto) 0.2 x10^3/uL (0.0-0.7) Basophils # (Auto) 0.0 x10^3/uL (0.0-0.2) Sodium Level 140 mmol/L (136-145) Potassium Level 4.5 mmol/L (3.5-5.1) Chloride Level 106 mmol/L (98-107) Carbon Dioxide Level 24 mmol/L (21-32) Anion Gap 10 (6-14) Blood Urea Nitrogen 18 mg/dL (7-20) Creatinine 0.6 mg/dL (0.6-1.0) Estimated GFR (Cockcroft-Gault) 106.7 BUN/Creatinine Ratio 30 (6-20) H Glucose Level 96 mg/dL (70-99) Calcium Level 9.6 mg/dL (8.5-10.1) Total Bilirubin 0.4 mg/dL (0.2-1.0) Aspartate Amino Transferase (AST) 17 U/L (15-37) Alanine Aminotransferase (ALT) 25 U/L (14-59) Alkaline Phosphatase 70 U/L (46-116) Troponin I High Sensitivity 5 ng/L (4-50) RL-Ipg-G-Type Natriuretic Peptide 37 pg/mL (0-124) Total Protein 7.0 g/dL (6.4-8.2) Albumin 3.4 g/dL (3.4-5.0) Albumin/Globulin Ratio 0.9 (1.0-1.7) L Lipase 51 U/L (73-393) L Laboratory Tests 07/03/21 07:50 Laboratory Tests 07/03/21 07:50 Vital Signs: Vital Signs Date Time Temp Pulse Resp B/P (MAP) Pulse Ox O2 Delivery O2 Flow Rate FiO2 07/03/21 07:45 98.4 75 16 146/92 (110) 99 Room Air 98.4 EKG: EKG: EKG was obtained at 7:39 AM reveals a normal sinus rhythm with a ventricular rate of 65 bpm. Intervals are normal and there are no acute ST/T wave changes to denote ischemia. There is no STEMI present. [] Repeat EKG was obtained at 8:33 AM and reveals a normal sinus rhythm with a ventricular rate of 63 bpm. Intervals again are normal and there are no acute ST/T wave changes to denote ischemia. There is no STEMI present. Heart Score: C/O Chest Pain: Yes HEART Score for Chest Pain: HEART Score for Chest Pain Response (Comments) Value History Slighlty/Non-Suspicious 0 ECG Normal 0 Age >45 - < 65 1 Risk Factors 1 or 2 Risk Factors 1 Troponin < Normal Limit 0 Total 2 Risk Factors: Risk Factors: DM, Current or recent (<one month) smoker, HTN, HLP, family history of CAD, obesity. Risk Scores: Score 0 - 3: 2.5% MACE over next 6 weeks - Discharge Home Score 4 - 6: 20.3% MACE over next 6 weeks - Admit for Clinical Observation Score 7 - 10: 72.7% MACE over next 6 weeks - Early Invasive Strategies Radiology/Procedures: Radiology/Procedures: [][facility] [address] [place] [address] IMAGING REPORT Signed PATIENT: JESSICA FERNANDEZ ACCOUNT: [id number] : 1970 LOCATION: ER AGE: 50 SEX: F EXAM STATUS: REG ER ORD. PHYSICIAN: NATALIYA CAVAZOS DO REASON: Chest pain PROCEDURE: PORTABLE CHEST 1V XR CHEST 1V History: Chest pain Comparison: 11/15/18 Technique: AP radiograph of the chest. Findings: The lungs are adequately and symmetrically inflated. No airspace consolidation, pleural effusion or pneumothorax. The cardiomediastinal silhouette and pulmonary vasculature are within normal limits. No acute osseous abnormality. Soft tissues are unremarkable. Impression: 1. No acute cardiopulmonary process. Electronically signed by: Jacob Ludwig MD (07/03/2021 8:02 AM) [facility] DICTATED and SIGNED BY: JACOB LUDWIG MD DATE: 07/03/21 08 Course & Med Decision Making: Course & Med Decision Making Pertinent Labs and Imaging studies reviewed. (See chart for details). Upon arrival the patient was taken directly to room 18 where the patient was interviewed and examined. IV access was established and blood was obtained. Additionally an EKG was obtained as well as chest x-ray. Patient does not have any acute pathological findings on EKG or chest x-ray. Lab work is unremarkable. Nonetheless given the patient's complaint and his relative proximity to her arrival to the emergency department, I do believe she warrants admission to the hospitalist service for further evaluation and treatment. The patient understands and has agreed to this. She is awaiting transport to the floor. [] Dragon Disclaimer: Dragon Disclaimer: This electronic medical record was generated, in whole or in part, using a voice recognition dictation system. Departure Departure Impression: Primary Impression: Chest pain Disposition: ADMITTED INPATIENT Admitting Physician: BETSY Condition: STABLE Referrals: ROLDAN PRUETT (PCP) NATALIYA CAVAZOS DO July 03, 2021 07:46
[2021-07-03 07:56] LABS: BASO % 1 % (0-3); EOS # 0.2 x10^3/uL (0.0-0.7); EOS % 4 % (0-3); HEMATOCRIT 36.9 % (36.0-47.0); HEMOGLOBIN 12.7 g/dL (12.0-15.5); LYMPH # 1.1 x10^3/uL (1.0-4.8); LYMPH % 26 % (24-48); MEAN CORPUSCULAR HEMOGLOBIN 30 pg (25-35); MEAN CORPUSCULAR HGB CONC 34 g/dL (31-37); MEAN CORPUSCULAR VOLUME 88 fL (79-100); MONO # 0.4 x10^3/uL (0.0-1.1); MONO % 9 % (0-9); NEUT # 2.5 x10^3/uL (1.8-7.7); NEUT % 60 % (31-73); PLATELET COUNT 252 x10^3/uL (140-400); RED CELL DISTRIBUTION WIDTH 13.2 % (11.5-14.5); WHITE BLOOD COUNT 4.1 x10^3/uL (4.0-11.0)
--- NOTE | 2021-07-03 08:05 | RAD ---
XR CHEST 1V History: Chest pain Comparison: 11/15/18 Technique: AP radiograph of the chest. Findings: The lungs are adequately and symmetrically inflated. No airspace consolidation, pleural effusion or p neumothorax. The cardiomediastinal silhouette and pulmonary vasculature are within normal limits. No acute osseous abnormality. Soft tissues are unremarkable. Impression: 1. No acute cardiopulmonary process. Electronically signed by: Jacob Majano MD (07/03/2021 8:02 AM) [facility]
[2021-07-03 08:12] LABS: CALCIUM 9.6 mg/dL (8.5-10.1); CREATININE 0.6 mg/dL (0.6-1.0); GFR 106.7; POTASSIUM 4.5 mmol/L (3.5-5.1)
[2021-07-03 08:17] LABS: ALBUMIN 3.4 g/dL (3.4-5.0); ALBUMIN/GLOBULIN RATIO 0.9 (1.0-1.7); TOTAL BILIRUBIN 0.4 mg/dL (0.2-1.0)
[2021-07-03] MEDS ORDERED: ONDANSETRON PF 4 MG/2 ML VIAL. IVP PRN ×2 (08:30→11:45)
[2021-07-03] MEDS ORDERED: MORPHINE SULFATE 4 MG/ML INJ. IVP PRN (08:30)
[2021-07-03] MEDS ORDERED: ACETAMINOPHEN 325 MG TABLET. PO PRN ×2 (08:30→11:45)
[2021-07-03 11:00] VITALS: BP 118/72
[2021-07-03] MEDS ORDERED: LISI10TA16 PO (11:42)
--- NOTE | 2021-07-03 11:43 | PDOC1 ---
History and Physical Date of Service: DOS: DATE: 07/03/21 TIME: 11:33 Chief Complaint: Chief Complain: Chest pain. History of Present Illness: HPI: 50-year-old female with past medical history of asthma who comes in with chest tightness that radiates to her left arm and shoulder. She also felt some numbness and tingling on the left arm. She states she was driving to work when this happened and she decided not good to go to work. Patient also describes some cough and fatigue in the last couple days. Patient also endorses some shortness of breath. Denies fevers, abdominal pain, dysuria, sick contacts, recent travel or any personal cardiac history. In the ED patient was saturating 99% on room air and not having any acute chest pain. She is alert and awake and nontoxic-appearing. Of note, patient describes history of Raynaud's phenomena when she is encountered with cold weather or reaching into the freezer. She does not have any necrotic portions of her fingertips. She explains that her hands does get tingling and turns white in certain portions of her fingertips. In both hands. She also does complain of burning when her fingertips are exposed to warm and her blood returns back to her fingertips. Past Medical/Surgical History: PMH/PSH: Past medical history of asthma Surgical history of laparoscopic exploration for endometriosis Allergies: Allergies: Coded Allergies: No Known Drug Allergies (Unverified , 04/29/19) Family History: Family History: Strong cardiac history Social History: Social History: Denies alcohol, tobacco or drug abuse. Current Medications: Current Medications Current Medications Aspirin (Aspirin Chewable) 324 mg 1X ONCE PO Last administered on 07/03/21at 08:25; Start 07/03/21 at 07:45; Stop 07/03/21 at 07:46; Status DC Ondansetron HCl (Zofran) 4 mg PRN Q8HRS PRN IVP NAUSEA/VOMITING; Start 07/03/21 at 08:30; Stop 07/04/21 at 08:29 Morphine Sulfate (Morphine Sulfate) 4 mg PRN Q2HR PRN IVP PAIN; Start 07/03/21 at 08:30; Stop 07/04/21 at 08:29 Acetaminophen (Tylenol) 650 mg PRN Q4HRS PRN PO FEVER > 100.3'F; Start 07/03/21 at 08:30; Stop 07/04/21 at 08:29 Active Scripts Active Reported Cyclobenzaprine Hcl 10 Mg Tablet 10 Mg PO TID Tramadol Hcl 50 Mg Tablet 50 Mg PO Q6HRS PRN Loratadine 10 Mg Tablet 10 Mg PO ROS: Review of Systems Review of System REVIEW OF SYSTEMS: GENERAL: Denies weakness SKIN: No bruising, hair changes or rashes. EYES: No blurred, double or loss of vision. NOSE AND THROAT: No history of nosebleeds, hoarseness or sore throat. HEART: No history of palpitations, chest pain or shortness of breath on exertion. LUNGS: Denies cough, hemoptysis, wheezing or shortness of breath. GASTROINTESTINAL: Denies changes in appetite, nausea, vomiting, diarrhea or constipation. GENITOURINARY: No history of frequency, urgency, hesitancy or nocturia. NEUROLOGIC: Denies history of numbness, tingling, or tremor. PSYCHIATRIC: No history of panic, anxiety or depression. ENDOCRINE: No history of heat or cold intolerance, polyuria or polydipsia. EXTREMITIES: Denies joint pain, pain on walking or stiffness. Physical Exam: Vital Signs: Vital Signs Date Time Temp Pulse Resp B/P (MAP) Pulse Ox O2 Delivery O2 Flow Rate FiO2 07/03/21 08:37 62 16 128/80 (96) 99 07/03/21 07:45 98.4 Room Air 98.4 Physcial Exam: General: Well developed, well nourished, no acute distress, well appearing HEENT: Pupils equally round and reactive to light, EOMI, no discharge, normal conjunctiva Neck: Supple, no nuchal rigidity, no JVD, trachea midline, no tenderness Cardiac: RRR, no murmurs, no gallops, no rubs Chest/Lungs: CTAB, no wheeze, no rhonchi, no crackles Abdomen: soft, non-distended, no guarding, no peritoneal signs, non-tender Back: No tenderness Extremities: no edema, pulses intact, non-tender,capillary refill <3 sec bilateral upper and lower extremities, Neuro: Alert and oriented x 4, no focal deficits, normal speech Labs: Labs: Laboratory Tests Test 07/03/21 07:50 07/03/21 08:40 5/25/22 10:49 White Blood Count 4.1 x10^3/uL (4.0-11.0) Red Blood Count 4.20 x10^6/uL (3.50-5.40) Hemoglobin 12.7 g/dL (12.0-15.5) Hematocrit 36.9 % (36.0-47.0) Mean Corpuscular Volume 88 fL (79-100) Mean Corpuscular Hemoglobin 30 pg (25-35) Mean Corpuscular Hemoglobin Concent 34 g/dL (31-37) Red Cell Distribution Width 13.2 % (11.5-14.5) Platelet Count 252 x10^3/uL (140-400) Neutrophils (%) (Auto) 60 % (31-73) Lymphocytes (%) (Auto) 26 % (24-48) Monocytes (%) (Auto) 9 % (0-9) Eosinophils (%) (Auto) 4 % (0-3) Basophils (%) (Auto) 1 % (0-3) Neutrophils # (Auto) 2.5 x10^3/uL (1.8-7.7) Lymphocytes # (Auto) 1.1 x10^3/uL (1.0-4.8) Monocytes # (Auto) 0.4 x10^3/uL (0.0-1.1) Eosinophils # (Auto) 0.2 x10^3/uL (0.0-0.7) Basophils # (Auto) 0.0 x10^3/uL (0.0-0.2) Sodium Level 140 mmol/L (136-145) Potassium Level 4.5 mmol/L (3.5-5.1) Chloride Level 106 mmol/L (98-107) Carbon Dioxide Level 24 mmol/L (21-32) Anion Gap 10 (6-14) Blood Urea Nitrogen 18 mg/dL (7-20) Creatinine 0.6 mg/dL (0.6-1.0) Estimated GFR (Cockcroft-Gault) 106.7 BUN/Creatinine Ratio 30 (6-20) Glucose Level 96 mg/dL (70-99) Calcium Level 9.6 mg/dL (8.5-10.1) Total Bilirubin 0.4 mg/dL (0.2-1.0) Aspartate Amino Transf (AST/SGOT) 17 U/L (15-37) Alanine Aminotransferase (ALT/SGPT) 25 U/L (14-59) Alkaline Phosphatase 70 U/L (46-116) Troponin I High Sensitivity 5 ng/L (4-50) < 4 ng/L (4-50) DY-Pio-Q-Type Natriuretic Peptide 37 pg/mL (0-124) Total Protein 7.0 g/dL (6.4-8.2) Albumin 3.4 g/dL (3.4-5.0) Albumin/Globulin Ratio 0.9 (1.0-1.7) Lipase 51 U/L (73-393) SARS-CoV-2 Antigen (Rapid) Negative (NEGATIVE) Laboratory Tests Test 07/03/21 07:50 07/03/21 08:40 07/03/21 10:49 White Blood Count 4.1 x10^3/uL (4.0-11.0) Red Blood Count 4.20 x10^6/uL (3.50-5.40) Hemoglobin 12.7 g/dL (12.0-15.5) Hematocrit 36.9 % (36.0-47.0) Mean Corpuscular Volume 88 fL (79-100) Mean Corpuscular Hemoglobin 30 pg (25-35) Mean Corpuscular Hemoglobin Concent 34 g/dL (31-37) Red Cell Distribution Width 13.2 % (11.5-14.5) Platelet Count 252 x10^3/uL (140-400) Neutrophils (%) (Auto) 60 % (31-73) Lymphocytes (%) (Auto) 26 % (24-48) Monocytes (%) (Auto) 9 % (0-9) Eosinophils (%) (Auto) 4 % (0-3) Basophils (%) (Auto) 1 % (0-3) Neutrophils # (Auto) 2.5 x10^3/uL (1.8-7.7) Lymphocytes # (Auto) 1.1 x10^3/uL (1.0-4.8) Monocytes # (Auto) 0.4 x10^3/uL (0.0-1.1) Eosinophils # (Auto) 0.2 x10^3/uL (0.0-0.7) Basophils # (Auto) 0.0 x10^3/uL (0.0-0.2) Sodium Level 140 mmol/L (136-145) Potassium Level 4.5 mmol/L (3.5-5.1) Chloride Level 106 mmol/L (98-107) Carbon Dioxide Level 24 mmol/L (21-32) Anion Gap 10 (6-14) Blood Urea Nitrogen 18 mg/dL (7-20) Creatinine 0.6 mg/dL (0.6-1.0) Estimated GFR (Cockcroft-Gault) 106.7 BUN/Creatinine Ratio 30 (6-20) Glucose Level 96 mg/dL (70-99) Calcium Level 9.6 mg/dL (8.5-10.1) Total Bilirubin 0.4 mg/dL (0.2-1.0) Aspartate Amino Transf (AST/SGOT) 17 U/L (15-37) Alanine Aminotransferase (ALT/SGPT) 25 U/L (14-59) Alkaline Phosphatase 70 U/L (46-116) Troponin I High Sensitivity 5 ng/L (4-50) < 4 ng/L (4-50) DZ-Dxb-T-Type Natriuretic Peptide 37 pg/mL (0-124) Total Protein 7.0 g/dL (6.4-8.2) Albumin 3.4 g/dL (3.4-5.0) Albumin/Globulin Ratio 0.9 (1.0-1.7) Lipase 51 U/L (73-393) SARS-CoV-2 Antigen (Rapid) Negative (NEGATIVE) Images: Images PROCEDURE: PORTABLE CHEST 1V XR CHEST 1V History: Chest pain Comparison: 11/15/18 Technique: AP radiograph of the chest. Findings: The lungs are adequately and symmetrically inflated. No airspace consolidation, pleural effusion or pneumothorax. The cardiomediastinal silhouette and pulmonary vasculature are within normal limits. No acute osseous abnormality. Soft tissues are unremarkable. Impression: 1. No acute cardiopulmonary process. Assessment/Plan Assessment/Plan Chest pain concerning for unstable angina/NSTEMI Possible Prinzmetal angina associated with history of Raynaud's phenomena History of asthma Possible Raynaud's phenomena HEART = 2 Troponin negative x2 Continue aspirin, consider Plavix if intermediate risk will defer this to cardiology Cardiology consulted for predischarge stress testing Continue nitroglycerin as needed for pain Continue beta-prashant if blood pressures allow Continue high intensity statins IV morphine as needed Consider Lovenox Maintain O2 sats between 88 to 95% Trend troponins Repeat EKG in the a.m. Continue telemetry monitoring Monitor for electrolyte abnormalities Avoid NSAIDs Patient may require outpatient nailfold capillary microscopy to determine if her Raynaud's is primary versus secondary, this can be arranged with a [facility] umatologist Justifications for Admission Other Justification KALIE ELISE MD July 03, 2021 11:43
[2021-07-03] MEDS ORDERED: LORazepam 0.5 MG TABLET PO PRN (11:45)
[2021-07-03] MEDS ORDERED: PROCHLORPERAZINE 10 MG/2 ML VIAL. IV PRN (11:45)
[2021-07-03] MEDS ORDERED: MORPHINE SULFATE 2 MG/ML INJ. IV PRN (11:45)
[2021-07-03] MEDS ORDERED: oxyCODONE/APAP 5/325 1 TAB TABLET PO PRN (11:45)
[2021-07-03] MEDS ORDERED: MORPHINE SULFATE 2 MG/ML INJ. IVP PRN (11:45)
[2021-07-03] MEDS ORDERED: diphenhydrAMINE HCL 25 MG CAPSULE PO PRN ×2 (11:45)
[2021-07-03] MEDS ORDERED: SENNOSIDES 8.6 MG TABLET PO PRN (11:45)
[2021-07-03] MEDS ORDERED: DOCUSATE SODIUM 100 MG CAPSULE. PO PRN (11:45)
[2021-07-03] MEDS ORDERED: diphenhydrAMINE 50 MG/ML VIAL IVP PRN (11:45)
[2021-07-03] MEDS ORDERED: DEXTROSE 50% 25 GM / 50ML DISP.SYRIN. IV PRN (11:45)
[2021-07-03] MEDS ORDERED: ZOLPIDEM 5 MG TABLET. PO PRN (11:45)
[2021-07-03] MEDS ORDERED: MULT-211 PO (11:46)
[2021-07-03] MEDS: IPRATRPIUM/ALBUTEROL 0.5/2.5MG 3 ML NEBU. NEB SCH ×3 (12:07→20:00)
[2021-07-03 12:31] LABS: CHOLESTEROL/HDL RATIO 2.1
--- NOTE | 2021-07-03 12:48 | PDOC2 ---
CLAIRSSA BHATIA DELINQUENT TAX COLLECTOR ASSISTANT 07/03/21 1248: CARDIAC CONSULT DATE OF CONSULT Date of Consult DATE: 07/03/21 TIME: 12:47 REASON FOR CONSULT Reason for Consult: r/o ACS REFERRING PHYSICIAN Referring Physician: DR. Rosa SOURCE Source: Chart review, Patient HISTORY OF PRESENT ILLNESS HISTORY OF PRESENT ILLNESS This is a yo female who presented secondary to chest pain. Patient reports she was on her way to work this morning when she had a sudden onset of tightness, pressure in her central chest. Pain radiated down her left arm. [place] nauseated, sweaty, and felt as if she could not catch her breath. Due to symptoms, patient decided to come to the ED for further evaluation and work-up. Patient reports symptoms lasted about 15 minutes and resolved without intervention. She does report that she has been extremely stressed recently as son just graduated from high school. She denies any recent shortness of breath or chest pain upon exertion. Does report that she has felt fatigued for the last couple of days. No prior history of CAD. Does have history of palpitations and had heart monitor arranged, but for some reason monitor did not record. She reports feeling well now aside from feeling tired. She also reports her heart feels as if it is racing following the breathing treatment. Heart rate is currently in the 80s. PAST MEDICAL HISTORY Cardiovascular: HTN, Hyperlipidemia, Other (palpitations ) Pulmonary: Asthma PAST SURGICAL HISTORY Past Surgical History: Tonsillectomy FAMILY HISTORY Family History: Heart Disease SOCIAL HISTORY Smoke: No ALCOHOL: none Drugs: None Lives: with Family CURRENT MEDICATIONS CURRENT MEDICATIONS Current Medications Medications (Trade) Dose Ordered Sig/Arlene Route PRN Reason Start Time Stop Time Status Last Admin Dose Admin Aspirin (Aspirin Chewable) 324 mg 1X ONCE PO 07/03/21 07:45 07/03/21 07:46 DC 07/03/21 08:25 Albuterol/ Ipratropium (Duoneb) 3 ml RTQID NEB 07/03/21 12:00 07/03/21 12:07 ALLERGIES ALLERGIES: Coded Allergies: No Known Drug Allergies (Unverified , 04/29/19) ROS Review of System 14 point ROS conducted with pertinent positives noted above in HPI. PHYSICAL EXAM General: Alert, Oriented X3, Cooperative, No acute distress HEENT: Atraumatic Lungs: Clear to auscultation Heart: Regular rate Abdomen: Soft, No tenderness Extremities: No edema, Normal pulses Skin: No breakdown, No significant lesion Neuro: Normal speech, Sensation intact Psych/Mental Status: Mental status NL, Mood NL MUSCULOSKELETAL: Osteoarthritic changes both hands VITALS/I&O VITALS/I&O: Vital Signs Date Time Temp Pulse Resp B/P (MAP) Pulse Ox O2 Delivery O2 Flow Rate FiO2 07/03/21 12:08 99 Room Air 07/03/21 08:37 62 16 128/80 (96) 07/03/21 07:45 98.4 98.4 LABS Lab: Laboratory Tests Test 07/03/21 07:50 07/03/21 08:40 07/03/21 10:49 White Blood Count 4.1 x10^3/uL (4.0-11.0) Red Blood Count 4.20 x10^6/uL (3.50-5.40) Hemoglobin 12.7 g/dL (12.0-15.5) Hematocrit 36.9 % (36.0-47.0) Mean Corpuscular Volume 88 fL (79-100) Mean Corpuscular Hemoglobin 30 pg (25-35) Mean Corpuscular Hemoglobin Concent 34 g/dL (31-37) Red Cell Distribution Width 13.2 % (11.5-14.5) Platelet Count 252 x10^3/uL (140-400) Neutrophils (%) (Auto) 60 % (31-73) Lymphocytes (%) (Auto) 26 % (24-48) Monocytes (%) (Auto) 9 % (0-9) Eosinophils (%) (Auto) 4 % (0-3) H Basophils (%) (Auto) 1 % (0-3) Neutrophils # (Auto) 2.5 x10^3/uL (1.8-7.7) Lymphocytes # (Auto) 1.1 x10^3/uL (1.0-4.8) Monocytes # (Auto) 0.4 x10^3/uL (0.0-1.1) Eosinophils # (Auto) 0.2 x10^3/uL (0.0-0.7) Basophils # (Auto) 0.0 x10^3/uL (0.0-0.2) Sodium Level 140 mmol/L (136-145) Potassium Level 4.5 mmol/L (3.5-5.1) Chloride Level 106 mmol/L (98-107) Carbon Dioxide Level 24 mmol/L (21-32) Anion Gap 10 (6-14) Blood Urea Nitrogen 18 mg/dL (7-20) Creatinine 0.6 mg/dL (0.6-1.0) Estimated GFR (Cockcroft-Gault) 106.7 BUN/Creatinine Ratio 30 (6-20) H Glucose Level 96 mg/dL (70-99) Calcium Level 9.6 mg/dL (8.5-10.1) Total Bilirubin 0.4 mg/dL (0.2-1.0) Aspartate Amino Transferase (AST) 17 U/L (15-37) Alanine Aminotransferase (ALT) 25 U/L (14-59) Alkaline Phosphatase 70 U/L (46-116) Troponin I High Sensitivity 5 ng/L (4-50) < 4 ng/L (4-50) L DG-Wyq-H-Type Natriuretic Peptide 37 pg/mL (0-124) Total Protein 7.0 g/dL (6.4-8.2) Albumin 3.4 g/dL (3.4-5.0) Albumin/Globulin Ratio 0.9 (1.0-1.7) L Triglycerides Level 23 mg/dL (0-150) Cholesterol Level 184 mg/dL (0-200) LDL Cholesterol, Calculated 90 mg/dL (0-100) VLDL Cholesterol, Calculated 5 mg/dL (0-40) Non-HDL Cholesterol Calculated 95 mg/dL (0-129) HDL Cholesterol 89 mg/dL (40-60) H Cholesterol/HDL Ratio 2.1 Lipase 51 U/L (73-393) L Thyroid Stimulating Hormone (TSH) 2.060 uIU/mL (0.358-3.74) SARS-CoV-2 Antigen (Rapid) Negative (NEGATIVE) Laboratory Tests 07/03/21 07:50 Laboratory Tests 07/03/21 07:50 ASSESSMENT/PLAN ASSESSMENT/PLAN 1. Chest pain, mixed features. Trop negative x2. EKG without significant acute changes 2. Hypertension; controlled 3. Hyperlipidemia 4. Asthma Recommendations ASA Lipids, TSH Echocardiogram Probable outpatient ischemic evaluation unless echo significantly abnormal. Supportive care SCOTT HOUSTON MD 07/04/21 0956: CARDIAC CONSULT ASSESSMENT/PLAN ASSESSMENT/PLAN Late entry for 07/03/2021 Patient seen and examined. Agree with above nurse practitioner note. I had a long discussion with the patient regarding her symptoms. She appears to have classic unstable anginal symptoms and in the setting she wishes to proceed with cardiac catheterization which I think is not unreasonable. We will plan for this in the next 24 hours. Risks and benefits discussed with the patient. CLARISSA BHATIA APRN July 03, 2021 12:48 SCOTT HOUSTON MD July 04, 2021 09:56
[2021-07-03 15:00] VITALS: BP 100/59
--- NOTE | 2021-07-03 16:56 | CARD ---
MR#: [id number] Date of Study: 07/03/2021 Ordering Physician: CLARISSA BHATIA, Referring Physician: CLARISSA BHAITA, Yeison: Eddie Hester [facility] APPROVED REPORT EXAM: Two-dimensional and M-mode echocardiogram with Doppler and color Doppler. Other Information Quality : AverageHR: 72bpm Rhythm : NSR INDICATION Chest Pain 2D DIMENSIONS Left Atrium(2D)3.4 (1.6-4.0cm)IVSd0.9 (0.7-1.1cm) Aortic Root(2D)2.8 (2.0-3.7cm)LVDd4.3 (3.9-5.9cm) LVOT Diameter2.0 (1.8-2.4cm)PWd0.8 (0.7-1.1cm) LA Kxdoyu16 (18-58mL)LVDs2.7 (2.5-4.0cm) FS (%) 37.4 %SV57.0 ml Aortic Valve AoV Peak Celso.157.7cm/sAoV VTI29.5cm AO Peak GR.9.9mmHgLVOT Peak Celso.143.7cm/s LVOT VTI 27.40cmAO Mean GR.5mmHg MILDRED (VMAX)2.74aa0LMX (VTI)2.83cm2 Mitral Valve MV E Gegonnmx694.1cm/sMV DECEL PXHM732lt MV A Jnbskkwf99.3cm/sMV URO99em E/A Ratio1.4MVA (PHT)3.20cm2 TDI E/Lateral E'8.3E/Medial E'10.2 Pulmonary Valve PV Peak Tjphdrmf859.4cm/sPV Peak Grad.4mmHg Tricuspid Valve TR P. Asuuauqv023qo/sTR Peak Gr.21mmHg Pulmonary Vein S1 Ndktnpgo91.7cm/sD2 Raxoukkt85.8cm/s LEFT VENTRICLE The left ventricle is normal size. There is normal left ventricular wall thickness. The left ventricu lar systolic function is normal. LV ejection fraction is 55 to 60%. There is normal LV segmental wall motion. No left ventricle thrombus noted on this study. There is no ventricular septal defect visual ized. There is no left ventricular aneurysm. There is no mass noted in the left ventricle. RIGHT VENTRICLE The right ventricle is normal size. There is normal right ventricular wall thickness. The right ventr icular systolic function is normal. ATRIA The left atrium size is normal. The right atrium size is normal. The interatrial septum is intact wit h no evidence for an atrial septal defect or patent foramen ovale as noted on 2-D or Doppler imaging. AORTIC VALVE The aortic valve is normal in structure and function. Doppler and Color Flow revealed no significant aortic regurgitation. There is no significant aortic valvular stenosis. There is no aortic valvular v egetation. MITRAL VALVE The mitral valve is normal in structure and function. There is no evidence of mitral valve prolapse. There is no mitral valve stenosis. Doppler and Color-flow revealed trace mitral regurgitation. TRICUSPID VALVE The tricuspid valve is normal in structure and function. Doppler and Color Flow revealed trace to mil d tricuspid regurgitation. The PA pressure was estimated at 25 mmHg. There is no tricuspid valve prol apse or vegetation. There is no tricuspid valve stenosis. PULMONIC VALVE The pulmonary valve is normal in structure and function. Doppler and Color Flow revealed no pulmonic valvular regurgitation. There is no pulmonic valvular stenosis. GREAT VESSELS The aortic root is normal in size. The ascending aorta is normal in size. The pulmonary artery is nor mal. The IVC is normal in size and collapses >50% with inspiration. PERICARDIAL EFFUSION There is no pleural effusion. There is no evidence of significant pericardial effusion. Critical Notification Critical Value: No <Conclusion> The left ventricle is normal size. The left ventricular systolic function is normal. LV ejection fraction is 55 to 60%. Doppler and Color Flow revealed no significant aortic regurgitation. There is no significant aortic valvular stenosis. Doppler and Color-flow revealed trace mitral regurgitation. Doppler and Color Flow revealed trace to mild tricuspid regurgitation. The PA pressure was estimated at 25 mmHg. Signed by : Gatito Sexton MD Electronically Approved : 07/03/2021 16:55:45
[2021-07-03 19:24] VITALS: BP 105/65
[2021-07-03 22:45] VITALS: BP 114/67
[2021-07-03 23:01] LABS: BARBITURATES NEG (NEG); BENZODIAZEPINES NEG (NEG); CANNABINOIDS NEG (NEG); COCAINE NEG (NEG); METHADONE NEG (NEG); OPIATES NEG (NEG); PHENCYCLIDINE NEG (NEG)
[2021-07-03 23:02] LABS: AMPHETAMINE/METHAMPHETAMINE NEG (NEG)
[2021-07-04 02:50] VITALS: BP 99/51
[2021-07-04 03:59] LABS: BASO % 1 % (0-3); EOS # 0.2 x10^3/uL (0.0-0.7); EOS % 4 % (0-3); HEMATOCRIT 35.1 % (36.0-47.0); HEMOGLOBIN 11.8 g/dL (12.0-15.5); LYMPH # 1.7 x10^3/uL (1.0-4.8); LYMPH % 31 % (24-48); MEAN CORPUSCULAR HEMOGLOBIN 30 pg (25-35); MEAN CORPUSCULAR HGB CONC 34 g/dL (31-37); MEAN CORPUSCULAR VOLUME 89 fL (79-100); MONO # 0.4 x10^3/uL (0.0-1.1); MONO % 8 % (0-9); NEUT % 56 % (31-73); PLATELET COUNT 250 x10^3/uL (140-400); RED BLOOD COUNT 3.95 x10^6/uL (3.50-5.40); RED CELL DISTRIBUTION WIDTH 13.3 % (11.5-14.5); WHITE BLOOD COUNT 5.4 x10^3/uL (4.0-11.0)
[2021-07-04 04:15] LABS: CALCIUM 9.5 mg/dL (8.5-10.1); CREATININE 0.7 mg/dL (0.6-1.0); GFR 89.3; MAGNESIUM 1.9 mg/dL (1.8-2.4); PHOSPHORUS 3.3 mg/dL (2.6-4.7)
[2021-07-04 07:00] VITALS: BP 112/61
--- NOTE | 2021-07-04 07:17 | PDOC ---
[employer] PROGRESS NOTE Date of Service DOS: DATE: 07/04/21 TIME: 07:15 Chief Complaint Chief Complaint Chest pain concerning for unstable angina/NSTEMI Possible Prinzmetal angina associated with history of Raynaud's phenomena History of asthma Possible Raynaud's phenomena History of Present Illness History of Present Illness 50-year-old female with past medical history of asthma who comes in with chest tightness that radiates to her left arm and shoulder. She also felt some numbness and tingling on the left arm. She states she was driving to work when this happened and she decided not good to go to work. Patient also describes some cough and fatigue in the last couple days. Patient also endorses some shortness of breath. Denies fevers, abdominal pain, dysuria, sick contacts, recent travel or any personal cardiac history. In the ED patient was saturating 99% on room air and not having any acute chest pain. She is alert and awake and nontoxic-appearing. Of note, patient describes history of Raynaud's phenomena when she is encountered with cold weather or reaching into the freezer. She does not have any necrotic portions of her fingertips. She explains that her hands does get tingling and turns white in certain portions of her fingertips. In both hands. She also does complain of burning when her fingertips are exposed to warm and her blood returns back to her fingertips. 07/04: Chest tightness is improved still having some left hand and arm symptoms. She is n.p.o. for cardiac catheterization both her parents had early coronary artery disease Vitals/I&O Vitals/I&O: Vital Signs Date Time Temp Pulse Resp B/P (MAP) Pulse Ox O2 Delivery O2 Flow Rate FiO2 07/04/21 02:50 97.8 66 16 99/51 (67) 99 Room Air 97.8 I & O 07/03/21 07/03/21 07/04/21 15:00 23:00 07:00 Intake Total 100 ml 400 ml Output Total 925 ml 400 ml Balance -825 ml 0 ml Physical Exam General: Alert, Oriented X3, Cooperative, No acute distress Heart: Regular rate Abdomen: Soft, No tenderness Extremities: No edema, Normal pulses Skin: No breakdown, No significant lesion Labs Labs: Laboratory Tests Test 07/03/21 07:50 07/03/21 08:40 07/03/21 10:49 07/03/21 14:22 White Blood Count 4.1 x10^3/uL (4.0-11.0) Red Blood Count 4.20 x10^6/uL (3.50-5.40) Hemoglobin 12.7 g/dL (12.0-15.5) Hematocrit 36.9 % (36.0-47.0) Mean Corpuscular Volume 88 fL (79-100) Mean Corpuscular Hemoglobin 30 pg (25-35) Mean Corpuscular Hemoglobin Concent 34 g/dL (31-37) Red Cell Distribution Width 13.2 % (11.5-14.5) Platelet Count 252 x10^3/uL (140-400) Neutrophils (%) (Auto) 60 % (31-73) Lymphocytes (%) (Auto) 26 % (24-48) Monocytes (%) (Auto) 9 % (0-9) Eosinophils (%) (Auto) 4 % (0-3) Basophils (%) (Auto) 1 % (0-3) Neutrophils # (Auto) 2.5 x10^3/uL (1.8-7.7) Lymphocytes # (Auto) 1.1 x10^3/uL (1.0-4.8) Monocytes # (Auto) 0.4 x10^3/uL (0.0-1.1) Eosinophils # (Auto) 0.2 x10^3/uL (0.0-0.7) Basophils # (Auto) 0.0 x10^3/uL (0.0-0.2) Sodium Level 140 mmol/L (136-145) Potassium Level 4.5 mmol/L (3.5-5.1) Chloride Level 106 mmol/L (98-107) Carbon Dioxide Level 24 mmol/L (21-32) Anion Gap 10 (6-14) Blood Urea Nitrogen 18 mg/dL (7-20) Creatinine 0.6 mg/dL (0.6-1.0) Estimated GFR (Cockcroft-Gault) 106.7 BUN/Creatinine Ratio 30 (6-20) Glucose Level 96 mg/dL (70-99) Calcium Level 9.6 mg/dL (8.5-10.1) Total Bilirubin 0.4 mg/dL (0.2-1.0) Aspartate Amino Transf (AST/SGOT) 17 U/L (15-37) Alanine Aminotransferase (ALT/SGPT) 25 U/L (14-59) Alkaline Phosphatase 70 U/L (46-116) Troponin I High Sensitivity 5 ng/L (4-50) < 4 ng/L (4-50) 5 ng/L (4-50) PK-Irn-J-Type Natriuretic Peptide 37 pg/mL (0-124) Total Protein 7.0 g/dL (6.4-8.2) Albumin 3.4 g/dL (3.4-5.0) Albumin/Globulin Ratio 0.9 (1.0-1.7) Triglycerides Level 23 mg/dL (0-150) Cholesterol Level 184 mg/dL (0-200) LDL Cholesterol, Calculated 90 mg/dL (0-100) VLDL Cholesterol, Calculated 5 mg/dL (0-40) Non-HDL Cholesterol Calculated 95 mg/dL (0-129) HDL Cholesterol 89 mg/dL (40-60) Cholesterol/HDL Ratio 2.1 Lipase 51 U/L (73-393) Thyroid Stimulating Hormone (TSH) 2.060 uIU/mL (0.358-3.74) Coronavirus (COVID-19)(PCR) Not detected (NOT DETECTD) SARS-CoV-2 Antigen (Rapid) Negative (NEGATIVE) Test 07/03/21 22:40 07/04/21 03:05 Urine Opiates Screen Neg (NEG) Urine Methadone Screen Neg (NEG) Urine Barbiturates Neg (NEG) Urine Phencyclidine Screen Neg (NEG) Urine Amphetamine/Methamphetamine Neg (NEG) Urine Benzodiazepines Screen Neg (NEG) Urine Cocaine Screen Neg (NEG) Urine Cannabinoids Screen Neg (NEG) Urine Ethyl Alcohol Neg (NEG) White Blood Count 5.4 x10^3/uL (4.0-11.0) Red Blood Count 3.95 x10^6/uL (3.50-5.40) Hemoglobin 11.8 g/dL (12.0-15.5) Hematocrit 35.1 % (36.0-47.0) Mean Corpuscular Volume 89 fL (79-100) Mean Corpuscular Hemoglobin 30 pg (25-35) Mean Corpuscular Hemoglobin Concent 34 g/dL (31-37) Red Cell Distribution Width 13.3 % (11.5-14.5) Platelet Count 250 x10^3/uL (140-400) Neutrophils (%) (Auto) 56 % (31-73) Lymphocytes (%) (Auto) 31 % (24-48) Monocytes (%) (Auto) 8 % (0-9) Eosinophils (%) (Auto) 4 % (0-3) Basophils (%) (Auto) 1 % (0-3) Neutrophils # (Auto) 3.0 x10^3/uL (1.8-7.7) Lymphocytes # (Auto) 1.7 x10^3/uL (1.0-4.8) Monocytes # (Auto) 0.4 x10^3/uL (0.0-1.1) Eosinophils # (Auto) 0.2 x10^3/uL (0.0-0.7) Basophils # (Auto) 0.0 x10^3/uL (0.0-0.2) Sodium Level 142 mmol/L (136-145) Potassium Level 4.0 mmol/L (3.5-5.1) Chloride Level 109 mmol/L (98-107) Carbon Dioxide Level 26 mmol/L (21-32) Anion Gap 7 (6-14) Blood Urea Nitrogen 15 mg/dL (7-20) Creatinine 0.7 mg/dL (0.6-1.0) Estimated GFR (Cockcroft-Gault) 89.3 Glucose Level 98 mg/dL (70-99) Calcium Level 9.5 mg/dL (8.5-10.1) Phosphorus Level 3.3 mg/dL (2.6-4.7) Magnesium Level 1.9 mg/dL (1.8-2.4) Assessment and Plan Assessmemt and Plan Problems Medical Problems: (1) Chest pain Status: Acute Comment Review of Relevant I have reviewed the following items funmi (where applicable) has been applied. Medications: Current Medications Medications (Trade) Dose Ordered Sig/Arlene Route PRN Reason Start Time Stop Time Status Last Admin Dose Admin Aspirin (Aspirin Chewable) 324 mg 1X ONCE PO 07/03/21 07:45 07/03/21 07:46 DC 07/03/21 08:25 Albuterol/ Ipratropium (Duoneb) 3 ml RTQID NEB 07/03/21 12:00 07/03/21 12:07 Images: The left ventricle is normal size. The left ventricular systolic function is normal. LV ejection fraction is 55 to 60%. Doppler and Color Flow revealed no significant aortic regurgitation. There is no significant aortic valvular stenosis. Doppler and Color-flow revealed trace mitral regurgitation. Doppler and Color Flow revealed trace to mild tricuspid regurgitation. The PA pressure was estimated at 25 mmHg. Justifications for Admission Other Justification Chest pain. KEIKO CHEN MD July 04, 2021 07:17
--- NOTE | 2021-07-04 07:50 | EKG ---
[facility] [address] [place] [address] Test Date: 2021-07-03 Test Time: 07:39:21 Pat Name: JESSICA FERNANDEZ Department: Room: [facility] Gender: F Forging Machine Operator: [id number] : 1970 Requested By: NATALIYA CAVAZOS Order Number: [id number] Reading MD: Addison Alexander MD Measurements Intervals [place] Rate: 65 P: 36 MD: 150 QRS: 29 QRSD: 80 T: 23 QT: 368 QTc: 387 Interpretive Statements SINUS RHYTHM Electronically Signed On 07-04-2021 15:34:43 CDT by Addison Alexander MD
--- NOTE | 2021-07-04 07:50 | EKG ---
[facility] [address] [place] [address] Test Date: 2021-07-03 Test Time: 08:33:26 Pat Name: JESSICA FERNANDEZ Department: Room: [facility] Gender: F [employer] Department Chair: : 1970 Requested By: NATALIYA CAVAZOS Order Number: [id number] Reading MD: Addison Alexander MD Measurements Intervals [place] Rate: 63 P: 36 MS: 156 QRS: 31 QRSD: 78 T: 15 QT: 378 QTc: 390 Interpretive Statements SINUS RHYTHM Electronically Signed On 07-04-2021 15:34:37 CDT by Addison Alexander MD
[2021-07-04] MEDS ORDERED: ASPIRIN ENTERIC COATED 81 MG TABLET.DR. PO SCH (08:00)
[2021-07-04] MEDS ORDERED: LIDOCAINE 1% PF 2 ML VIAL. ONE (10:02)
[2021-07-04] MEDS ORDERED: IOHEXOL 300 MG/ML 50 ML VIAL. ONE (10:02)
[2021-07-04] MEDS ORDERED: fentaNYL PF VIAL 100 MCG/2 ML VIAL ONE (10:11)
[2021-07-04] MEDS ORDERED: MIDAZOLAM HCL/PF 2 MG/2 ML VIAL. ONE (10:12)
[2021-07-04] MEDS ORDERED: VERAPAMIL 5 MG/2 ML VIAL. ONE (10:12)
[2021-07-04] MEDS ORDERED: NITROGLYCERIN 200 MCG/2 ML SYRINGE FOR CATH/VASC LAB. ONE (10:12)
[2021-07-04] MEDS ORDERED: HEPARIN for IV BOLUS 10,000 UNIT/10 ML VIAL. ONE (10:12)
[2021-07-04] MEDS ORDERED: LIDOCAINE 1% PF 2 ML VIAL. INJ ONE (10:15)
[2021-07-04] MEDS ORDERED: HEPARIN for IV BOLUS 10,000 UNIT/10 ML VIAL. IART ONE (10:15)
[2021-07-04] MEDS ORDERED: NITROGLYCERIN 200 MCG/2 ML SYRINGE FOR CATH/VASC LAB. IART ONE (10:15)
[2021-07-04] MEDS ORDERED: VERAPAMIL 5 MG/2 ML VIAL. IART ONE (10:15)
[2021-07-04] MEDS ORDERED: MIDAZOLAM HCL/PF 2 MG/2 ML VIAL. IV ONE (10:15)
[2021-07-04] MEDS ORDERED: IOHEXOL 300 MG/ML 50 ML VIAL. IART ONE (10:15)
[2021-07-04] MEDS ORDERED: fentaNYL PF VIAL 100 MCG/2 ML VIAL IV ONE (10:15)
[2021-07-04] MEDS ORDERED: CONTRAST GIVEN. MC PRN (10:30)
[2021-07-04 11:11] VITALS: BP 126/76
--- NOTE | 2021-07-04 13:50 | CARD ---
MR#: [id number] Date of Study: 07/04/2021 Ordering Physician: SCOTT HOUSTON, Referring Physician: SCOTT HOUSTON, Tech: RT Laurita(R) APPROVED REPORT Technologist: RT Laurita(R) Nurse: Key Hoskins RN Procedure(s) performed: FL TIME: 2.2 MIN DOSE: 22 GYCM2 CONTRAST: 16 ML MODERATE SEDATION: 25 MINS LHC, Coronary angiography INDICATION The indication(s) include : unstable angina . [facility] Clinical Frailty Scale [facility] Clinical Frailty Scale: Well Heart Failure Heart Failure: No CASE TECHNIQUE IV conscious sedation was used throughout procedure with appropriate monitoring and was performed in the presence of a registered nurse who was an independent trained observer other than the physician p erforming the procedure. During this case, Fluoroscopy and low osmolar contrast were used for imaging . Specimen(s) Removed: N/A Estimated Blood loss: 15 cc's. PROCEDURE NARRATIVE Clinical information: 50-year-old woman presented to the hospital in the setting of unstable anginal symptoms. Procedure details: After appropriate informed consent the right wrist was prepped and draped in usual sterile fashion. Under 1% lidocaine local anesthesia a 6 [place]an sheath was placed in the right radial artery. Diagnos tic angiography was then performed with a 6 Singaporean TIG catheter. Left ventricular end-diastolic pres sure was obtained with a pigtail catheter and a pullback was performed. At case completion the severino ters and sheaths were removed. No acute complications. Findings: Aorta 110/80 LVEDP 10 mmHg No LV to aortic pullback gradient Coronary angiography: Left main is a large-caliber vessel with normal angiographic appearance LAD is a moderate to large caliber vessel with an ostial 10 to 20% stenosis Left circumflex is a moderate to large caliber codominant vessel with mild luminal irregularities LPL 1 is a moderate caliber vessel with mild luminal irregularities RCA is a moderate to large caliber codominant vessel with mild luminal irregularities Conclusion 1. Normal left-sided filling pressures 2. No significant coronary artery disease Recommendations Aggressive Medical Therapy Signed by : Scott Houston, Electronically Approved : 07/04/2021 13:49:31
--- NOTE | 2021-07-04 14:22 | PDOC3 ---
Discharge Summary Visit Information Date of Admission: July 03, 2021 Date of Discharge: July 04, 2021 Admitting Diagnosis: Chest pain Final Diagnosis Problems Medical Problems: (1) Chest pain Status: Acute Brief Hospital Course Allergies Allergies Coded Allergies Type Severity Reaction Last Updated Verified nickel Allergy Intermediate Rash 07/04/21 Yes Vital Signs Vital Signs Date Time Temp Pulse Resp B/P (MAP) Pulse Ox O2 Delivery O2 Flow Rate FiO2 07/04/21 11:11 68 15 100 Nasal Cannula 2.0 07/04/21 07:00 98.6 112/61 (78) 98.6 Lab Results Laboratory Tests Test 07/03/21 07:50 07/03/21 08:40 07/03/21 10:49 07/03/21 14:22 White Blood Count 4.1 x10^3/uL (4.0-11.0) Red Blood Count 4.20 x10^6/uL (3.50-5.40) Hemoglobin 12.7 g/dL (12.0-15.5) Hematocrit 36.9 % (36.0-47.0) Mean Corpuscular Volume 88 fL (79-100) Mean Corpuscular Hemoglobin 30 pg (25-35) Mean Corpuscular Hemoglobin Concent 34 g/dL (31-37) Red Cell Distribution Width 13.2 % (11.5-14.5) Platelet Count 252 x10^3/uL (140-400) Neutrophils (%) (Auto) 60 % (31-73) Lymphocytes (%) (Auto) 26 % (24-48) Monocytes (%) (Auto) 9 % (0-9) Eosinophils (%) (Auto) 4 % (0-3) Basophils (%) (Auto) 1 % (0-3) Neutrophils # (Auto) 2.5 x10^3/uL (1.8-7.7) Lymphocytes # (Auto) 1.1 x10^3/uL (1.0-4.8) Monocytes # (Auto) 0.4 x10^3/uL (0.0-1.1) Eosinophils # (Auto) 0.2 x10^3/uL (0.0-0.7) Basophils # (Auto) 0.0 x10^3/uL (0.0-0.2) Sodium Level 140 mmol/L (136-145) Potassium Level 4.5 mmol/L (3.5-5.1) Chloride Level 106 mmol/L (98-107) Carbon Dioxide Level 24 mmol/L (21-32) Anion Gap 10 (6-14) Blood Urea Nitrogen 18 mg/dL (7-20) Creatinine 0.6 mg/dL (0.6-1.0) Estimated GFR (Cockcroft-Gault) 106.7 BUN/Creatinine Ratio 30 (6-20) Glucose Level 96 mg/dL (70-99) Calcium Level 9.6 mg/dL (8.5-10.1) Total Bilirubin 0.4 mg/dL (0.2-1.0) Aspartate Amino Transf (AST/SGOT) 17 U/L (15-37) Alanine Aminotransferase (ALT/SGPT) 25 U/L (14-59) Alkaline Phosphatase 70 U/L (46-116) Troponin I High Sensitivity 5 ng/L (4-50) < 4 ng/L (4-50) 5 ng/L (4-50) IK-Ltt-V-Type Natriuretic Peptide 37 pg/mL (0-124) Total Protein 7.0 g/dL (6.4-8.2) Albumin 3.4 g/dL (3.4-5.0) Albumin/Globulin Ratio 0.9 (1.0-1.7) Triglycerides Level 23 mg/dL (0-150) Cholesterol Level 184 mg/dL (0-200) LDL Cholesterol, Calculated 90 mg/dL (0-100) VLDL Cholesterol, Calculated 5 mg/dL (0-40) Non-HDL Cholesterol Calculated 95 mg/dL (0-129) HDL Cholesterol 89 mg/dL (40-60) Cholesterol/HDL Ratio 2.1 Lipase 51 U/L (73-393) Thyroid Stimulating Hormone (TSH) 2.060 uIU/mL (0.358-3.74) Coronavirus (COVID-19)(PCR) Not detected (NOT DETECTD) SARS-CoV-2 Antigen (Rapid) Negative (NEGATIVE) Test 07/03/21 22:40 07/04/21 03:05 Urine Opiates Screen Neg (NEG) Urine Methadone Screen Neg (NEG) Urine Barbiturates Neg (NEG) Urine Phencyclidine Screen Neg (NEG) Urine Amphetamine/Methamphetamine Neg (NEG) Urine Benzodiazepines Screen Neg (NEG) Urine Cocaine Screen Neg (NEG) Urine Cannabinoids Screen Neg (NEG) Urine Ethyl Alcohol Neg (NEG) White Blood Count 5.4 x10^3/uL (4.0-11.0) Red Blood Count 3.95 x10^6/uL (3.50-5.40) Hemoglobin 11.8 g/dL (12.0-15.5) Hematocrit 35.1 % (36.0-47.0) Mean Corpuscular Volume 89 fL (79-100) Mean Corpuscular Hemoglobin 30 pg (25-35) Mean Corpuscular Hemoglobin Concent 34 g/dL (31-37) Red Cell Distribution Width 13.3 % (11.5-14.5) Platelet Count 250 x10^3/uL (140-400) Neutrophils (%) (Auto) 56 % (31-73) Lymphocytes (%) (Auto) 31 % (24-48) Monocytes (%) (Auto) 8 % (0-9) Eosinophils (%) (Auto) 4 % (0-3) Basophils (%) (Auto) 1 % (0-3) Neutrophils # (Auto) 3.0 x10^3/uL (1.8-7.7) Lymphocytes # (Auto) 1.7 x10^3/uL (1.0-4.8) Monocytes # (Auto) 0.4 x10^3/uL (0.0-1.1) Eosinophils # (Auto) 0.2 x10^3/uL (0.0-0.7) Basophils # (Auto) 0.0 x10^3/uL (0.0-0.2) Sodium Level 142 mmol/L (136-145) Potassium Level 4.0 mmol/L (3.5-5.1) Chloride Level 109 mmol/L (98-107) Carbon Dioxide Level 26 mmol/L (21-32) Anion Gap 7 (6-14) Blood Urea Nitrogen 15 mg/dL (7-20) Creatinine 0.7 mg/dL (0.6-1.0) Estimated GFR (Cockcroft-Gault) 89.3 Glucose Level 98 mg/dL (70-99) Calcium Level 9.5 mg/dL (8.5-10.1) Phosphorus Level 3.3 mg/dL (2.6-4.7) Magnesium Level 1.9 mg/dL (1.8-2.4) Laboratory Tests Test 07/03/21 14:22 07/03/21 22:40 07/04/21 03:05 Troponin I High Sensitivity 5 ng/L (4-50) Urine Opiates Screen Neg (NEG) Urine Methadone Screen Neg (NEG) Urine Barbiturates Neg (NEG) Urine Phencyclidine Screen Neg (NEG) Urine Amphetamine/Methamphetamine Neg (NEG) Urine Benzodiazepines Screen Neg (NEG) Urine Cocaine Screen Neg (NEG) Urine Cannabinoids Screen Neg (NEG) Urine Ethyl Alcohol Neg (NEG) White Blood Count 5.4 x10^3/uL (4.0-11.0) Red Blood Count 3.95 x10^6/uL (3.50-5.40) Hemoglobin 11.8 g/dL (12.0-15.5) Hematocrit 35.1 % (36.0-47.0) Mean Corpuscular Volume 89 fL (79-100) Mean Corpuscular Hemoglobin 30 pg (25-35) Mean Corpuscular Hemoglobin Concent 34 g/dL (31-37) Red Cell Distribution Width 13.3 % (11.5-14.5) Platelet Count 250 x10^3/uL (140-400) Neutrophils (%) (Auto) 56 % (31-73) Lymphocytes (%) (Auto) 31 % (24-48) Monocytes (%) (Auto) 8 % (0-9) Eosinophils (%) (Auto) 4 % (0-3) Basophils (%) (Auto) 1 % (0-3) Neutrophils # (Auto) 3.0 x10^3/uL (1.8-7.7) Lymphocytes # (Auto) 1.7 x10^3/uL (1.0-4.8) Monocytes # (Auto) 0.4 x10^3/uL (0.0-1.1) Eosinophils # (Auto) 0.2 x10^3/uL (0.0-0.7) Basophils # (Auto) 0.0 x10^3/uL (0.0-0.2) Sodium Level 142 mmol/L (136-145) Potassium Level 4.0 mmol/L (3.5-5.1) Chloride Level 109 mmol/L (98-107) Carbon Dioxide Level 26 mmol/L (21-32) Anion Gap 7 (6-14) Blood Urea Nitrogen 15 mg/dL (7-20) Creatinine 0.7 mg/dL (0.6-1.0) Estimated GFR (Cockcroft-Gault) 89.3 Glucose Level 98 mg/dL (70-99) Calcium Level 9.5 mg/dL (8.5-10.1) Phosphorus Level 3.3 mg/dL (2.6-4.7) Magnesium Level 1.9 mg/dL (1.8-2.4) Brief Hospital Course 50-year-old female with past medical history of asthma who comes in with chest tightness that radiates to her left arm and shoulder. She also felt some numbness and tingling on the left arm. She states she was driving to work when this happened and she decided not good to go to work. Patient also describes some cough and fatigue in the last couple days. Patient also endorses some shortness of breath. Denies fevers, abdominal pain, dysuria, sick contacts, recent travel or any personal cardiac history. In the ED patient was saturating 99% on room air and not having any acute chest pain. She is alert and awake and nontoxic-appearing. Of note, patient describes history of Raynaud's phenomena when she is encountered with cold weather or reaching into the freezer. She does not have any necrotic portions of her fingertips. She explains that her hands does get tingling and turns white in certain portions of her fingertips. In both hands. She also does complain of burning when her fingertips are exposed to warm and he r blood returns back to her fingertips. 07/04: Chest tightness is improved still having some left hand and arm symptoms. She is n.p.o. for cardiac catheterization both her parents had early coronary artery disease Echocardiogram with no significant abnormalities. Cardiac catheterization with no significant coronary artery disease recommend optimization of medical therapy. Counseled on lifestyle modification acid reduction possible esophageal spasm. Also with historical cervical and thoracic radiculopathy and outpatient therapy. Consults: Cardiology Problem list: Chest pain - negative for CAD, likely esophageal spasm/GERD related, possibly cervical/thoracic radiculopathy. outpatient therapy, low acid didet Possible Prinzmetal angina associated with history of Raynaud's phenomena History of asthma Possible Raynaud's phenomena Greater than 30 minutes spent on d/c home with self care. Discharge Information Condition at Discharge: Improved Follow Up: Weeks (1) Disposition/Orders: D/C to Home Scheduled Cyclobenzaprine Hcl (Cyclobenzaprine Hcl) 10 Mg Tablet, 10 MG PO TID for RELAXER, (Reported) Entered as Reported by: JOSE CRUZ BAUER on 04/29/19 0836 Lisinopril (Lisinopril) 10 Mg Tablet, 1 TAB PO DAILY for HTN, #30 Ref 5 (Reported) Entered as Reported by: ELZA BROUSSARD on 07/03/21 114 Last Action: New Order on 07/03/211141 by ELZA BROUSSARD Multivit With Calcium,Iron,Min (Maximum Daily Multivitamin) 1 Each Tablet, 1 EACH PO AFTRNOON for supplement, (Reported) Entered as Reported by: ELZA BROUSSARD on 07/03/21 114 Last Action: New Order on 07/03/211145 by ELZA BROUSSARD Scheduled PRN Tramadol Hcl (Tramadol Hcl) 50 Mg Tablet, 50 MG PO Q6HRS PRN for PAIN, (Reported) Entered as Reported by: JOSE CRUZ BAUER on 04/29/19 0836 Miscellaneous Medications Loratadine (Loratadine) 10 Mg Tablet, 10 MG PO, (Reported) Entered as Reported by: BRINA ORDAZ on 03/21/16 0920 Justicifation of Admission Dx: Justifications for Admission: Justification of Admission Dx: Yes KEIKO CHEN MD July 04, 2021 14:21
[2021-07-04 15:00] VITALS: BP 115/69
--- NOTE | 2021-07-04 16:35 | NUR ---
Discharge paperwork reviewed with patient, patient voices understanding et denies questions or concerns at this time. Saline lock removed from right AC with cannula intact. Patient ambulated to front entrance escorted by family et unit staff. All belongings taken with patient at time of discharge. Patient states that she is happy to be going home.
== END 2021-07-04 16:35 | disposition hospice, home (50) ==
LOC: ER 07:24 → INTOOBSV 08:30 → 6 SOUTH 08:30
PROVIDERS: ADMIT Internal Medicine; ATTEND Internal Medicine
DX: I20.0 Unstable angina (principal); Z20.822 Contact with and (suspected) exposure to COVID-19; I10 Essential (primary) hypertension; J45.909 Unspecified asthma, uncomplicated; E78.5 Hyperlipidemia, unspecified; I73.00 Raynaud's syndrome without gangrene; K21.9 Gastro-esophageal reflux disease without esophagitis; K22.4 Dyskinesia of esophagus; M54.14 Radiculopathy, thoracic region; Z79.899 Other long term (current) drug therapy; Z98.890 Other specified postprocedural states; Z79.82 Long term (current) use of aspirin
CPT/HCPCS: 36415; 71045; 80048; 80053; 80061; 80307; 83690; 83735; 83880; 84100; 84443; 84484; 85025; 87426; 93005; 93306; 93458; 94640; 99152; 99153; 99285; C1769; C1894; G0378; J1644; J2250; J3010; J3490; Q9967; U0003; G0379; C8929